=== PATIENT | female | born 1965 | race Hispanic/Latino ===

== ENCOUNTER 2017-06-20 16:48 | Emergency (ER) | payer MEDICAID ==
[2017-06-20 16:55] VITALS: BMI 28.1
[2017-06-20 16:58] VITALS: TEMP 99
[2017-06-20 17:45] LABS: BASO # 0.04 K/mm3 (0.0-2.0); BASO % 0.3 % (0.0-3.0); EOS # 0.4 (0.0-0.7); EOS % 2.8 % (1.5-5.0); GRAN # 7.42 (1.4-6.5); GRAN % 59.2 % (50.0-68.0); HEMOGLOBIN 12.4 g/dL (12.0-16.0); LYMPH # 3.8 (1.2-3.4); LYMPH % 30.6 % (22.0-35.0); MEAN CELL VOLUME 90.4 fl (80.0-105.0); MEAN CORPUSCULAR HEMOGLOBIN 31.2 pg (25.0-35.0); MEAN CORPUSCULAR HGB CONC 34.5 g/dl (31.0-37.0); MEAN PLATELET VOLUME 11.3 fl (7.0-11.0); MONO # 0.9 (0.1-0.6); MONO % 7.1 % (1.0-6.0); PLATELET COUNT 264 10^3/uL (120.0-450.0); RBC 3.97 10^6/uL (3.5-6.1); RED CELL DISTRIBUTION WIDTH 12.6 % (11.5-14.5); WHITE BLOOD COUNT 12.5 10^3/ul (4.5-11.0)
[2017-06-20 17:46] LABS: ALB/GLOB RATIO 1.4 (1.1-1.8); ALBUMIN 4.3 g/dL (3.0-4.8); ALT/SGPT 28 U/L (7-56); AST/SGOT 29 U/L (15-39); BLOOD UREA NITROGEN 16 mg/dL (7-21); CALCIUM 9.5 mg/dL (8.4-10.5); GFR AFRICAN-AMERICAN > 60; GFR NON-AFRICAN AMERICAN > 60
--- NOTE | 2017-06-20 17:49 | ED PDOC ---
Arrival/HPI - General Chief Complaint: Female Genitourinary Time Seen by Provider: 06/20/17 17:03 Historian: Patient - History of Present Illness Narrative History of Present Illness (Text): 06/20/17 17:45 A 51 year old female presents to the emergency department complaining of vaginal bleeding for 5 weeks. Patient denies any pain or discomfort. Patient denies any fever, chills, nausea, vomiting, abdominal pain, chest pain, shortness of breath, dyspnea on exertion or any other complaints. Time/Duration: Other (5 weeks) Symptom Course: Unchanged Quality: Other Context: Home Past Medical History - Provider Review Nursing Documentation Reviewed: Yes - Infectious Disease Hx of Infectious Diseases: None - Tetanus Immunization Tetanus Immunization: Unknown - Cardiac Hx Cardiac Disorders: No Hx Pacemaker: No - Pulmonary Hx Respiratory Disorders: Yes Hx Bronchitis: Yes - Neurological Hx Neurological Disorder: Yes Hx Seizures: Yes Hx Transient Ischemic Attacks (TIA): Yes - HEENT Hx HEENT Disorder: Yes (glasses) - Renal Hx Renal Disorder: Yes Hx Kidney Stones: Yes (LITHOTRYPSY AND PASSED STONES) - Endocrine/Metabolic Hx Endocrine Disorders: Yes Hx Diabetes Mellitus Type 2: Yes Hx Hyperthyroidism: Yes Hx Hypothyroidism: Yes - Hematological/Oncological Hx Blood Disorders: Yes Hx Anemia: Yes Hx Blood Transfusions: No Hx Blood Transfusion Reaction: No - Integumentary Hx Dermatological Disorder: No - Musculoskeletal/Rheumatological Hx Musculoskeletal Disorders: Yes Hx Arthritis: Yes (Arthritis in the spine) - Gastrointestinal Hx Gastrointestinal Disorders: Yes (ULCER,GASTRITIS,CONSTIPATION,CHOLECYSTECTOMY ,APPENDECTOMY) Other/Comment: FATTY LIVER,GAASTROENTERITIS, - Genitourinary/Gynecological Hx Genitourinary Disorders: Yes Hx Urinary Tract Infection: Yes - Psychiatric Hx Anxiety: Yes Hx Bipolar Disorder: Yes Hx Depression: Yes Hx Schizophrenia: Yes Hx Substance Use: No - Past Surgical History Past Surgical History: Non-Contributing - Surgical History Hx Appendectomy: Yes Hx Cholecystectomy: Yes Hx Hysterectomy: Yes Hx Tonsillectomy: Yes - Anesthesia Hx Anesthesia: Yes Hx Anesthesia Reactions: No - Suicidal Assessment Feels Threatened In Home Enviroment: No Family/Social History - Physician Review Nursing Documentation Reviewed: Yes Family/Social History: No Known Family HX Smoking Status: Light Smoker < 10 Cigarettes Daily Hx Alcohol Use: No Hx Substance Use: No Hx Substance Use Treatment: No Allergies/Home Meds Allergies/Adverse Reactions: Allergies gabapentin Allergy (Verified 06/20/17 16:55) ANAPHYLAXIS ketorolac tromethamine [From Toradol] Allergy (Verified 06/20/17 16:55) ANAPHYLAXIS Home Medications: Home Meds Medication Instructions Recorded Confirmed Alprazolam [Xanax] 2 mg PO 5XD 05/08/15 06/20/17 Physical Exam - Physical Exam Narrative Physical Exam (Text): - Review of Systems Constitutional: Normal. absent: Fatigue, Weight Change, Fevers Eyes: Normal ENT: Normal Respiratory: Normal absent: SOB, Cough, Sputum, SINGH Cardiovascular: Normal absent: Chest pain, Palpitations, Syncope Gastrointestinal: Normal absent: Abdominal pain, Diarrhea, Nausea, Vomiting Genitourinary: (+) Vaginal bleeding absent: Dysuria, Frequency Musculoskeletal: Normal. absent: Arthralgias, Back Pain, Neck Pain Skin: Normal Neurological: Normal absent: Focal Weakness Endocrine: Normal Hemo/Lymphatic: Normal Psychiatric: Normal - Physical exam Patient appears age appropriate, speaking full sentences without difficulty. - Systems Exam Head: Present: Atraumatic, Normocephalic Pupils: Present: PERRL Extraocular Muscles: Present: EOMI Conjunctiva: Present: Normal Mouth: Present: Moist Mucous Membranes Neck: Present: Normal Range of Motion. No: MIDLINE TENDERNESS, Paraspinal Tenderness Respiratory/Chest: Present: Clear to Auscultation, Good Air Exchange. No: Respiratory Distress, Accessory Muscle Use, Tachypnic Cardiovascular: Present: Regular Rate and Rhythm, Normal S1, S2, Peripheral Pulses Present. No: Murmurs Abdomen: Present: Normal Bowel Sounds, No: Tenderness, Peritoneal Signs, Rebound, Guarding, Distention Back: Present: Normal Inspection. No: Midline Tenderness, Paraspinal Tenderness Upper Extremity: Present: Normal Inspection. No: Cyanosis, Edema Lower Extremity: Present: Normal Inspection. No: Edema Neurological: Present: GCS=15, Speech Normal, cranial nerves II through XII fully intact with no cerebellar abnormality, neuro-sensory fully intact. No focal neurological deficits. Skin: Present: Warm, Dry, Normal Color. No: Rashes Lymphatic: Present: OX3, NI, NC Psychiatric: Present: Alert, Oriented x 3, Normal Insight, Normal Concentration Vital Signs Reviewed: Yes Vital Signs Temp Pulse Resp BP Pulse Ox 06/20/17 16:58 99.0 F 103 H 19 134/88 94 L Temperature: Afebrile Blood Pressure: Normal Pulse: Tachycardic Respiratory Rate: Normal Appearance: Positive for: Well-Appearing, Non-Toxic, Comfortable Pain Distress: None Mental Status: Positive for: Alert and Oriented X 3 Medical Decision Making ED Course and Treatment: 06/20/17 17:45 Impression: A 51 year old female with vaginal bleeding. Physical exam unremarkable. Patient was recently [place] [facility] [place] and states she had a CT done which showed no renal stones. Plan: -- Labs -- Reassess and disposition Progress Notes: Patient advised that it is important to follow up with ob-cement contractor as outpatient for further workup, since her symptoms may be related to cancer. As per patient request Dr. Nuno was paged. Awaiting callback. 06/20/17 17:[address] Nuno, patients urologist, who agrees with plan to discharge patient home if her hemoglobin levels are stable. 06/20/17 18:36 Hemoglobin 12.4. Patient is hemodynamically stable and in no respiratory distress. Patient states that she has an appointment with Dr. Nuno tomorrow at 7 PM. Patient states that she feels comfortable being discharged home with outpatient follow-up. Patient left without any discharge instructions. - Lab Interpretations Lab Results: 06/20/17 17:15 06/20/17 17:15 Lab Results 06/20/17 17:15: Sodium 143, Potassium 3.8, Chloride 104, Carbon Dioxide 29, Anion Gap 14, BUN 16, Creatinine 0.6, Est GFR ( Amer) > 60, Est GFR (Non- Af Amer) > 60, Random Glucose 113 H, Calcium 9.5, Total Bilirubin 0.9, AST 29, ALT 28, Alkaline Phosphatase 106, Total Protein 7.3, Albumin 4.3, Globulin 3.0, Albumin/Globulin Ratio 1.4 06/20/17 17:15: WBC 12.5 H, RBC 3.97, Hgb 12.4, Hct 35.9 L, MCV 90.4, MCH 31.2, MCHC 34.5, RDW 12.6, Plt Count 264, MPV 11.3 H, Gran % 59.2, Lymph % (Auto) 30.6 , [place] % (Auto) 7.1 H, Eos % (Auto) 2.8, Baso % (Auto) 0.3, Gran # 7.42 H, Lymph # 3.8 H, [place] # 0.9 H, Eos # 0.4, Baso # 0.04 I have reviewed the lab results: Yes - Scribe Statement The provider has reviewed the documentation as recorded by the Scribe Lisa Bains Provider Scribe Attestation: All medical record entries made by the Scribe were at my direction and personally dictated by me. I have reviewed the chart and agree that the record accurately reflects my personal performance of the history, physical exam, medical decision making, and the department course for this patient. I have also personally directed, reviewed, and agree with the discharge instructions and disposition. Disposition/Present on Arrival - Present on Arrival Any Indicators Present on Arrival: No History of DVT/PE: No History of Uncontrolled Diabetes: Yes Urinary Catheter: No History of Decub. Ulcer: No History Surgical Site Infection Following: None - Disposition Have Diagnosis and Disposition been Completed?: Yes Diagnosis: Vaginal bleeding Disposition: HOME/ ROUTINE Disposition Time: 18:50 Patient Plan: Discharge Condition: GOOD Referrals: Vale Gallagher MD [Primary Care Provider] - Follow up with primary Forms: [employer] ([place])
[2017-06-20 22:20] VITALS: BP 134/82; PULSE 90; RESP 16; O2SAT 97
== END 2017-06-20 18:48 | disposition home or self-care (01) ==
LOC: ED 16:48
DX: N93.9 Abnormal uterine and vaginal bleeding, unspecified (principal)

== ENCOUNTER 2017-09-06 00:03 | Emergency (ER) | payer MEDICAID ==
[2017-09-06 00:03] VITALS: BMI 28.1
[2017-09-06 00:28] VITALS: PULSE 90; RESP 18; TEMP 98.2; O2SAT 98
--- NOTE | 2017-09-06 00:31 | ED PDOC ---
Arrival/HPI - General Chief Complaint: Medical Clearance Time Seen by Provider: 09/06/17 00:05 Historian: Patient, Police - History of Present Illness Narrative History of Present Illness (Text): 09/06/17 00:31 Elisabeth Wiseman is a 51 year old female, whose past medical history includes COPD , diabetes, depression, and anxiety, who presents to the Emergency department brought in by [place] after she was found sitting outside in a park tonight. According to police patient's had stated patient left home and wanted to jump [place] the [employer] [place]. In emergency department, states patient did not express suicidal ideation, reports he was talking about the patient's father who attempted to jump off the [employer] [place] in the past. Patient states she feels fine, denies any suicidal ideation/homicidal ideation. Patient requesting to go home. Patient denies any fever, chills, chest pain, shortness of breath, nausea, vomiting, diarrhea, urinary symptoms, back pain, neck pain, headache, dizziness, or any other complaints. Time/Duration: Other (tonight) Symptom Onset: Gradual Symptom Course: Unchanged Activities at Onset: Light Context: Street Past Medical History - Provider Review Nursing Documentation Reviewed: Yes - Infectious Disease Hx of Infectious Diseases: None - Tetanus Immunization Tetanus Immunization: Unknown - Cardiac Hx Cardiac Disorders: No Hx Pacemaker: No - Pulmonary Hx Respiratory Disorders: Yes Hx Bronchitis: Yes - Neurological Hx Neurological Disorder: Yes Hx Seizures: Yes Hx Transient Ischemic Attacks (TIA): Yes - HEENT Hx HEENT Disorder: Yes (glasses) - Renal Hx Renal Disorder: Yes Hx Kidney Stones: Yes (LITHOTRYPSY AND PASSED STONES) - Endocrine/Metabolic Hx Endocrine Disorders: No - Hematological/Oncological Hx Blood Disorders: No Hx Blood Transfusions: No Hx Blood Transfusion Reaction: No - Integumentary Hx Dermatological Disorder: No - Musculoskeletal/Rheumatological Hx Musculoskeletal Disorders: Yes Hx Arthritis: Yes (Arthritis in the spine) - Gastrointestinal Hx Gastrointestinal Disorders: Yes (ULCER,GASTRITIS,CONSTIPATION,CHOLECYSTECTOMY ,APPENDECTOMY) Other/Comment: FATTY LIVER,GAASTROENTERITIS, - Genitourinary/Gynecological Hx Genitourinary Disorders: No - Psychiatric Hx Anxiety: Yes Hx Depression: Yes Hx Substance Use: No - Past Surgical History Past Surgical History: Non-Contributing - Surgical History Hx Appendectomy: Yes Hx Cholecystectomy: Yes Hx Hysterectomy: Yes Hx Tonsillectomy: Yes - Anesthesia Hx Anesthesia: Yes Hx Anesthesia Reactions: No - Suicidal Assessment Feels Threatened In Home Enviroment: No Family/Social History - Physician Review Nursing Documentation Reviewed: Yes Family/Social History: Unknown Family HX Smoking Status: Light Smoker < 10 Cigarettes Daily Hx Alcohol Use: No Hx Substance Use: No Hx Substance Use Treatment: No Allergies/Home Meds Allergies/Adverse Reactions: Allergies gabapentin Allergy (Verified 09/06/17 00:31) ANAPHYLAXIS ketorolac tromethamine [From Toradol] Allergy (Verified 09/06/17 00:31) ANAPHYLAXIS Review of Systems - Physician Review All systems were reviewed & negative as marked: Yes - Review of Systems Constitutional: Normal. absent: Fevers Eyes: Normal ENT: Normal Respiratory: Normal. absent: SOB, Cough Cardiovascular: Normal. absent: Chest Pain Gastrointestinal: Normal. absent: Abdominal Pain, Diarrhea, Nausea, Vomiting Genitourinary Female: Normal. absent: Dysuria, Frequency, Hematuria, Urine Output Changes Musculoskeletal: Normal. absent: Back Pain, Neck Pain Skin: Normal. absent: Rash Neurological: Normal. absent: Headache, Dizziness Endocrine: Normal Hemo/Lymphatic: Normal Psychiatric: Normal. absent: Suicidal Ideation Physical Exam Vital Signs Reviewed: Yes Vital Signs Temp Pulse Resp BP Pulse Ox 09/06/17 00:30 138/84 09/06/17 00:23 98.2 F 90 18 98 Temperature: Afebrile Blood Pressure: Normal Pulse: Regular Respiratory Rate: Normal Appearance: Positive for: Well-Appearing, Non-Toxic, Comfortable Pain Distress: None Mental Status: Positive for: Alert and Oriented X 3 - Systems Exam Head: Present: Atraumatic, Normocephalic Pupils: Present: PERRL Extroacular Muscles: Present: EOMI Conjunctiva: Present: Normal Mouth: Present: Moist Mucous Membranes Neck: Present: Normal Range of Motion Respiratory/Chest: Present: Clear to Auscultation, Good Air Exchange. No: Respiratory Distress, Accessory Muscle Use Cardiovascular: Present: Regular Rate and Rhythm, Normal S1, S2. No: Murmurs Abdomen: Present: Normal Bowel Sounds. No: Tenderness, Distention, Peritoneal Signs Back: Present: Normal Inspection Upper Extremity: Present: Normal Inspection. No: Cyanosis, Edema Lower Extremity: Present: Normal Inspection. No: Edema Neurological: Present: GCS=15, CN II-XII Intact, Speech Normal Skin: Present: Warm, Dry, Normal Color. No: Rashes Psychiatric: Present: Alert, Oriented x 3, Normal Insight, Normal Concentration Medical Decision Making ED Course and Treatment: 09/06/17 00:31 Impression: 51 year old female brought in [facility] after she was found sitting outside in the park for possible SI. Plan: -- Reassess and disposition Prior Visits: Notes and results from previous visits were reviewed. Progress Notes: at bedside. denies reporting patient was expressing suicidal ideation. Patient states she feels fine, denies any SI/HI/other complaints. states he will take the pt home. Pt is in no acute distress. Pt stable for discharge. - Scribe Statement The provider has reviewed the documentation as recorded by the Scribe Anahi Cooper All medical record entries made by the Scribe were at my direction and personally dictated by me. I have reviewed the chart and agree that the record accurately reflects my personal performance of the history, physical exam, medical decision making, and the department course for this patient. I have also personally directed, reviewed, and agree with the discharge instructions and disposition. Disposition/Present on Arrival - Present on Arrival Any Indicators Present on Arrival: No History of DVT/PE: No History of Uncontrolled Diabetes: No Urinary Catheter: No History of Decub. Ulcer: No History Surgical Site Infection Following: None - Disposition Have Diagnosis and Disposition been Completed?: Yes Diagnosis: Routine check-up Disposition: HOME/ ROUTINE Disposition Time: 01:00 Condition: GOOD Discharge Instructions (ExitCare): Normal Exam (ED) Forms: [employer] ([employer])
[2017-09-06 00:45] VITALS: BP 138/84
== END 2017-09-06 00:46 | disposition home or self-care (01) ==
LOC: ED 00:03
DX: Z00.00 Encounter for general adult medical examination without abnormal findings (principal); E11.9 Type 2 diabetes mellitus without complications; F17.210 Nicotine dependence, cigarettes, uncomplicated; J44.9 Chronic obstructive pulmonary disease, unspecified

== ENCOUNTER 2017-09-07 12:40 | Emergency (ER) | payer MEDICAID ==
[2017-09-07 12:41] VITALS: BMI 28.1
[2017-09-07 13:00] VITALS: RESP 17; TEMP 98.1
--- NOTE | 2017-09-07 13:51 | ED PDOC ---
Arrival/HPI - General Historian: Spouse - History of Present Illness Time/Duration: 24 hours Symptom Onset: Sudden Symptom Course: Unchanged Quality: Unable to Describe (non verbal) Context: Home <Priti Luis - Last Filed: 09/07/17 17:03> <EsteeShonluiz - Last Filed: 09/07/17 22:07> - General Chief Complaint: Altered Mental Status Time Seen by Provider: 09/07/17 12:44 - History of Present Illness Narrative History of Present Illness (Text): 09/07/17 13:47 All history obtained from spouse at bedside, pt currently non verbal- able to indicate yes/no with head nods. 51F w/PMH sig for COPD, DM, depression/anxiety, chronic low back pain 2/2 disc herniation, hx gastritic ulcer, neuropathy, family reports "TIA" evaluated for pain after fall. Pt's reports that patient was in a room at home when he heard a loud noise. A family member entered the room, patient was found "laying in the position on the floor between the bed and the wall with the top part of a bureau partially on the bed and on the wall above her". Incident occurred at approximately 3pm, on day prior to ED visit. Patient was previously verbal, ambulatory, after incident reports that pt was "out, we placed her on the bed and she didn't wake up until 4 hours later". After incident pt became non verbal, non ambulatory, but capable of eating dinner and breakfast this AM. This AM pt said 1 sentence to spouse. Continues to be non verbal at this time. Pt indicated that she was in pain from her left hip at which time decided to call EMS. PMH: COPD, DM, depression/anxiety, chronic low back pain 2/2 disc herniation, hx gastritic ulcer, neuropathy, family reports "TIA" PSH: appendectomy, cholecystectomy, Tonsillectomy, hysterectomy All: NSAIDs SH: Smokes 4-5 cigarettes x 10 yrs, Denies ETOH or illicit drug use PMD: Mark Nj (Priti Luis) Past Medical History - Provider Review Nursing Documentation Reviewed: Yes - Infectious Disease Hx of Infectious Diseases: None - Tetanus Immunization Tetanus Immunization: Unknown - Cardiac Hx Cardiac Disorders: No - Pulmonary Hx Respiratory Disorders: Yes Hx Bronchitis: Yes - Neurological Hx Neurological Disorder: Yes HX Cerebrovascular Accident: Yes Hx Seizures: Yes Hx Transient Ischemic Attacks (TIA): Yes Other/Comment: Neuropathy - HEENT Hx HEENT Disorder: Yes (glasses) - Renal Hx Renal Disorder: Yes Hx Kidney Stones: Yes (LITHOTRYPSY AND PASSED STONES) - Endocrine/Metabolic Hx Diabetes Mellitus Type 2: Yes - Hematological/Oncological Hx Blood Disorders: No - Integumentary Hx Dermatological Disorder: No - Musculoskeletal/Rheumatological Hx Musculoskeletal Disorders: Yes Hx Arthritis: Yes (Arthritis in the spine) - Gastrointestinal Hx Gastrointestinal Disorders: Yes (ULCER,GASTRITIS,CONSTIPATION,CHOLECYSTECTOMY ,APPENDECTOMY) Other/Comment: FATTY LIVER,GAASTROENTERITIS, - Genitourinary/Gynecological Hx Genitourinary Disorders: No - Psychiatric Hx Anxiety: Yes Hx Depression: Yes Hx Substance Use: No - Past Surgical History Past Surgical History: Non-Contributing - Surgical History Hx Appendectomy: Yes Hx Cholecystectomy: Yes Hx Hysterectomy: Yes Hx Orthopedic Surgery: Yes (Right ankle screw placed) Hx Tonsillectomy: Yes - Anesthesia Hx Anesthesia: Yes Hx Anesthesia Reactions: No - Suicidal Assessment Feels Threatened In Home Enviroment: No <Priti Luis - Last Filed: 09/07/17 17:03> Family/Social History - Physician Review Nursing Documentation Reviewed: Yes Family/Social History: No Known Family HX Smoking Status: Light Smoker < 10 Cigarettes Daily Hx Alcohol Use: No Hx Substance Use: No Hx Substance Use Treatment: No <Priti Luis - Last Filed: 09/07/17 17:03> Allergies/Home Meds <Priti Luis - Last Filed: 09/07/17 17:03> <Ann Fontanez - Last Filed: 09/07/17 22:07> Allergies/Adverse Reactions: Allergies gabapentin Allergy (Verified 09/07/17 12:59) ANAPHYLAXIS ketorolac tromethamine [From Toradol] Allergy (Verified 09/07/17 12:59) ANAPHYLAXIS NSAIDS (Non-Steroidal Anti-Inflamma Allergy (Verified 09/07/17 12:59) ANAPHYLAXIS Home Medications: Home Meds Medication Instructions Recorded Confirmed Unobtainable 09/07/17 09/07/17 Review of Systems - Review of Systems Systems not reviewed;Unavailable: Uncooperative (non verbal) Musculoskeletal: Other (Left hip pain) <Priti Luis - Last Filed: 09/07/17 17:03> - Review of Systems Respiratory: absent: SOB Cardiovascular: absent: Chest Pain Gastrointestinal: absent: Abdominal Pain Musculoskeletal: Back Pain. absent: Neck Pain Neurological: absent: Headache <EsteeAnn - Last Filed: 09/07/17 22:07> Physical Exam Vital Signs Reviewed: Yes Temperature: Afebrile Blood Pressure: Normal Pulse: Regular Respiratory Rate: Normal Appearance: Positive for: Non-Toxic, Comfortable Pain Distress: None Mental Status: Positive for: other (non verbal, follows simple commands) Finger Stick Blood Glucose: 84 - Systems Exam Head: Present: Atraumatic, Normocephalic Pupils: Present: PERRL Extroacular Muscles: Present: EOMI Conjunctiva: Present: Normal Ears: Present: Normal Mouth: Present: Moist Mucous Membranes. No: Normal Teeth (abnormal dentition) Nose (External): Present: Atraumatic Neck: Present: Normal Range of Motion Respiratory/Chest: Present: Clear to Auscultation, Good Air Exchange. No: Respiratory Distress, Accessory Muscle Use, Tender to Palpation Cardiovascular: Present: Regular Rate and Rhythm, Normal S1, S2. No: Murmurs Abdomen: Present: Normal Bowel Sounds. No: Tenderness, Distention, Peritoneal Signs, Rebound, Guarding, Scars Back: Present: Paraspinal Tenderness (low back- mild), Pain with Leg Raise. No : Normal Inspection Upper Extremity: Present: Normal Inspection. No: Cyanosis, Edema, Normal ROM ( refusing to move left arm) Lower Extremity: Present: Normal Inspection, Tenderness (over left hip), Neurovascularly Intact. No: Normal ROM (refusing to move left leg), Erythema Neurological: Present: Norm Deep Tendon Reflexes (on legs bilat). No: CN II- XII Intact (refuses to open mouth), Speech Normal (refuses to speak), Motor Func Grossly Intact (refusing to move left arm and leg) Skin: Present: Warm, Dry, Normal Color. No: Rashes, Erythematous, Laceration, Abrasion Psychiatric: Present: Alert. No: Oriented x 3 (unable to assess), Normal Insight (unable to asses, non verbal), Normal Concentration (unable to asses, non verbal) <Priti Luis - Last Filed: 09/07/17 17:03> Vital Signs Temp Pulse Resp BP Pulse Ox 09/07/17 14:49 98.1 F 77 17 121/68 99 09/07/17 12:59 98.1 F 78 17 123/74 100 Medical Decision Making <Priti Luis - Last Filed: 09/07/17 17:03> <Ann Fontanez - Last Filed: 09/07/17 22:07> ED Course and Treatment: 09/07/17 13:54 Pt seen/evaluated, case DW ED attending. Will order lab work and imaging to assess for abnormalities. Pt seen signing her name on documentation at 13:20pm. (Priti Luis) 09/07/17 14:23 Patient seen and examined by me with biofuels plant manager Jaquelin CISNEROS, charge nurse at 13:15. Patient is present with , Syed, who supplements and provides history. I introduced myself to patient and family. When I entered room, with patient's and family's permission, I identified myself as the attending physician and stated that I wished to obtain history and examine the patient. The patient reportedly had requested that she did not want to have an EKG or get changed into a gown for examination. Thus, when I came into room, I discussed with patient and that given her complaints of injury and pain that I would like to perform physical exam to examine her neurologic status as well as pain and current symptoms. Patient nods her head in answer to my questions. She answers questions appropriately to questions with nods. She is focused on my voice. She is able to sign papers provided by registration with no difficulty. She is not speaking and reportedly has difficulty moving her left side. is present throughout my initial history and physical. When asked if she would allow me to change her into a gown she shakes her head no, but she nods in agreement when I asked if I could examine her back to examine her back pain. She points on her where she is experiencing pain. states that "at 3 pm yesterday I found her on the floor with a dresser on top of her". He states "she was out of it for four hours" and "not responding ". States he did not call ambulance at this time. He states this morning she was having pain to her left side on her back and hip. He states that she was having difficultly moving her left sided and not talking "since yesterday". This history and exam were witnessed by Jaquelin charge nurse RN who is present throughout my initial exam. Patient is alert, answers questions appropriately by nodding or shaking her head and gesturing to her . I also confirmed with patient's if he felt that she was communicating appropriately and understanding he states "yes she is". When I asked patient if she understands my questions she nods her head and answers questions appropriately. Patient's states that "she told me before she did not want to come to the hospital here that's why I didn't bring her yesterday. Patient's initially states that she has not been to this hospital for several months. I reviewed past visits and charts which suggest patient was evaluated in ED on 09/06/17. I discussed this with who states "oh yeah, you have to excuse me I have a memory problem sometimes" and states "I think she was here in the ER yesterday or the day before". Patient states that left the ER ambulating, and states that current incident happened the following day after being recently seen in the ER. Patient denies any headaches or chest pain or shortness of breath or abdominal pain. Reports pain to her left hip and upper back. On exam, no edema or crepitus or deformities noted. She does not lift up her left arm or left leg when prompted, although patient noted to push up off of her LEFT arm when sitting up. Reflexes intact. She will not speak. She denies overdose of any drugs or medications. She denies suicidal or homicidal ideation. I clearly discussed treatment plan including CT head, xrays, labs, EKG. I discussed this with her and in laymen's terms she states she is agreeable to have this testing done at this time. 09/07/17 15:31 Patient and , Syed, communicate to me that they wish her name to be changed to "Oxana" for privacy purposes. Initially they state that they do not wish for any further testing until this is addressed. I discussed this request with administrators and at 15:25 with nurse Lisa RN witness I updated the patient and that this request is being evaluated by administration. Patient and have given permission to address their concerns with social welfare administrator and charge nurse/nursing tank shop supervisor. Patient communicated via texting on phone and nodding her head. I asked directed if she is willing to have CT scan and xrays obtained at this time, she expressed that she is agreeable, concurs, Lisa RN, witnessed. On re-exam, she remains awake, alert, complains of back pain by pointing to her back, texts that she took Advil and xanax earlier today and she still has pain.. She continues to not communicate verbally, although she is moving her right upper and lower extremity without difficulty, and moving her left side as well. 09/07/17 16:25 Re-exam, with biofuels plant manager present. Patient complains of pain in her back requesting pain medication. She remains nonverbal but communicates with gestures , texting, nods. Patient unwilling currently to have xrays of her back and hip completed, requesting that her name to be changed to Oxana before she has these ordered xrays. I again communicated with risk management and administration regarding patient's and patients request. I again communicated with patient and family my desire to further treat and evaluate patient's current symptoms and again reviewed need for serial exams and imaging studies. I reviewed patient's allergies with patient and , she communicates that Morphine "makes her throat close up" and reports allergeis to ketorolac. Marketing Project Manager presented to bedside by patient's request to address her request to have her name "changed to Oxana". I have discussed risks and side effects of narcotic pain medication, and have offered alternative dosage or class of pain medication to patient as I am concerned that she is not speaking and there is risk of sedation or alteration of her mental status. At this point patient shook her head vehemently and communicated with that she wanted to leave. She is alert, understands stated risks of not following recommended treatment plan including but not limited to continued treatment, serial exams, serial neurologic exams, and have discussed with her and her risks of signing out against medical advice. She is able to communicate understanding of stated risks with present. 09/07/17 16:38 As patient's AMA paperwork was being prepared, patient ambulated to the physician area. She was informed her paperwork was being prepared and she and her were requested to leave the physician area to her stretcher so that paperwork could be prepared. Patient became physically aggressive with staff. She walked out of the Emergency Room with her and ripped up provided AMA form. All interactions with patient during Emergency Department evaluation were performed with witness and biofuels plant manager present. 09/07/17 17:01 1 (Ann Fontanez) - Lab Interpretations Lab Results: 09/07/17 14:00 09/07/17 14:00 Lab Results 09/07/17 14:00: Salicylates < 1 L, Acetaminophen < 10.0 L 09/07/17 14:00: Beta HCG, Quant 2.57, Alcohol, Quantitative < 10 09/07/17 14:00: Sodium 144, Potassium 4.1, Chloride 108 H, Carbon Dioxide 27, Anion Gap 13, BUN 15, Creatinine 0.6 L, Est GFR ( Amer) > 60, Est GFR ( Non-Af Amer) > 60, Random Glucose 92, Calcium 9.7, Total Bilirubin 0.8, AST 23, ALT 31, Alkaline Phosphatase 79, Lactate Dehydrogenase 408, Total Creatine Kinase < 20 L, Troponin I < 0.01, Total Protein 6.7, Albumin 4.0, Globulin 2.7, Albumin/Globulin Ratio 1.5 09/07/17 14:00: WBC 9.6 D, RBC 4.09, Hgb 12.8, Hct 37.3, MCV 91.2, MCH 31.3, MCHC 34.3, RDW 12.5, Plt Count 216, MPV 11.3 H, Gran % 59.5, Lymph % (Auto) 31.0 , [place] % (Auto) 6.8 H, Eos % (Auto) 2.4, Baso % (Auto) 0.3, Gran # 5.73, Lymph # 3.0, [place] # 0.7 H, Eos # 0.2, Baso # 0.03 09/07/17 12:58: POC Glucose (mg/dL) 84 - RAD Interpretation Radiology Orders: 09/07/17 13:21 HEAD W/O CONTRAST [CT] Stat Disposition/Present on Arrival - Present on Arrival History of DVT/PE: No History of Uncontrolled Diabetes: No Urinary Catheter: No History of Decub. Ulcer: No History Surgical Site Infection Following: None <Priti Luis - Last Filed: 09/07/17 17:03> - Present on Arrival Any Indicators Present on Arrival: No - Disposition Have Diagnosis and Disposition been Completed?: Yes Disposition Time: 16:30 Patient Plan: Discharge <Ann Fontanez - Last Filed: 09/07/17 22:07> - Disposition Diagnosis: Back pain, Difficulty speaking Disposition: AGAINST MEDICAL ADVICE Condition: STABLE Referrals: Mark Nj MD [Primary Care Provider] - Follow up with primary Forms: [employer] ([place])
[2017-09-07 14:16] LABS: BASO # 0.03 K/mm3 (0.0-2.0); BASO % 0.3 % (0.0-3.0); EOS # 0.2 (0.0-0.7); EOS % 2.4 % (1.5-5.0); GRAN # 5.73 (1.4-6.5); GRAN % 59.5 % (50.0-68.0); HEMATOCRIT 37.3 % (36.0-48.0); MEAN CELL VOLUME 91.2 fl (80.0-105.0); MEAN CORPUSCULAR HEMOGLOBIN 31.3 pg (25.0-35.0); MEAN CORPUSCULAR HGB CONC 34.3 g/dl (31.0-37.0); MEAN PLATELET VOLUME 11.3 fl (7.0-11.0); MONO # 0.7 (0.1-0.6); MONO % 6.8 % (1.0-6.0); RED CELL DISTRIBUTION WIDTH 12.5 % (11.5-14.5); WHITE BLOOD COUNT 9.6 10^3/ul (4.5-11.0)
[2017-09-07 14:28] LABS: ALB/GLOB RATIO 1.5 (1.1-1.8); ALKALINE PHOSPHATASE 79 U/L (38-126); ALT/SGPT 31 U/L (7-56); AST/SGOT 23 U/L (14-36); BILIRUBIN,TOTAL 0.8 mg/dL (0.2-1.3); BLOOD UREA NITROGEN 15 mg/dL (7-21); CALCIUM 9.7 mg/dL (8.4-10.5); CARBON DIOXIDE 27 mmol/L (21-33); CHLORIDE 108 mmol/L (98-107); GFR AFRICAN-AMERICAN > 60; GLUCOSE,RANDOM 92 mg/dL (70-110); POTASSIUM 4.1 mmol/L (3.6-5.0); SODIUM 144 mmol/L (132-148); TOTAL PROTEIN 6.7 g/dL (5.8-8.3)
[2017-09-07 14:30] LABS: ALCOHOL SERUM < 10 mg/dL (0-10)
[2017-09-07 14:45] LABS: TROPONIN I < 0.01 ng/mL
[2017-09-07 14:51] VITALS: BP 121/68; PULSE 77; O2SAT 99
--- NOTE | 2017-09-07 16:17 | CT ---
PROCEDURE: CT HEAD WITHOUT CONTRAST. HISTORY: possible trauma COMPARISON: 11/30/2016 TECHNIQUE: Axial computed tomography images were obtained through the head/brain without intravenous contrast. Radiation dose: Total exam DLP = 725 mGy-cm. This CT exam was performed using one or more of the following dose reduction techniques: Automated exposure control, adjustment of the mA and/or kV according to patient size, and/or use of iterative reconstruction technique. FINDINGS: HEMORRHAGE: No intracranial hemorrhage. BRAIN: No mass effect or edema. No atrophy or chronic microvascular ischemic changes. VENTRICLES: Unremarkable. No hydrocephalus. CALVARIUM: Unremarkable. PARANASAL SINUSES: Unremarkable as visualized. No significant inflammatory changes. MASTOID AIR CELLS: Unremarkable as visualized. No inflammatory changes. OTHER FINDINGS: None. IMPRESSION: Normal CT of the Head.
--- NOTE | 2017-09-08 08:21 | CARD ---
APPROVED REPORT EKG Measurement Heart [id number] <Conclusion> Normal sinus rhythm with sinus arrhythmia Small inferior q waves Normal ECG No change
== END 2017-09-07 16:45 | disposition left against medical advice (07) ==
LOC: ED 12:40
DX: M54.9 Dorsalgia, unspecified (principal); R47.9 Unspecified speech disturbances

== ENCOUNTER 2017-12-04 20:56 | Emergency (ER) | payer MEDICAID ==
[2017-12-04 20:56] VITALS: BMI 28.1
[2017-12-04 21:32] VITALS: BP 112/72; PULSE 87; RESP 18; TEMP 98.1; O2SAT 100
[2017-12-04 21:47] LABS: BASO # 0.03 K/mm3 (0.0-2.0); BASO % 0.3 % (0.0-3.0); EOS # 0.2 (0.0-0.7); EOS % 1.8 % (1.5-5.0); GRAN # 7.62 (1.4-6.5); GRAN % 65.6 % (50.0-68.0); HEMOGLOBIN 13.9 g/dL (12.0-16.0); LYMPH % 25.8 % (22.0-35.0); MEAN CORPUSCULAR HEMOGLOBIN 31.7 pg (25.0-35.0); MEAN CORPUSCULAR HGB CONC 35.3 g/dl (31.0-37.0); MEAN PLATELET VOLUME 11.3 fl (7.0-11.0); MONO # 0.8 (0.1-0.6); MONO % 6.5 % (1.0-6.0); RBC 4.38 10^6/uL (3.5-6.1); RED CELL DISTRIBUTION WIDTH 12.3 % (11.5-14.5); WHITE BLOOD COUNT 11.6 10^3/ul (4.5-11.0)
--- NOTE | 2017-12-04 21:47 | ED PDOC ---
Arrival/HPI - General Chief Complaint: Chest Pain Time Seen by Provider: 12/04/17 21:12 Historian: Patient, Spouse - History of Present Illness Narrative History of Present Illness (Text): 12/04/17 21:46 A 52 year old female presents to the emergency department complaining of chest pain that developed sometime today. History obtained from spouse at bedside. Patient reports she feels like her "heart is falling out of chest". Patient has reported to the emergency department in the past for drug overdose. Denies any other complaints at this time. PMD: Dr. Mark Nj Symptom Onset: Sudden Symptom Course: Unchanged Activities at Onset: Rest Context: Home Past Medical History - Provider Review Nursing Documentation Reviewed: Yes - Infectious Disease Hx of Infectious Diseases: None - Tetanus Immunization Tetanus Immunization: Unknown - Cardiac Hx Cardiac Disorders: No - Pulmonary Hx Respiratory Disorders: Yes Hx Bronchitis: Yes - Neurological Hx Neurological Disorder: Yes HX Cerebrovascular Accident: Yes Hx Seizures: Yes Hx Transient Ischemic Attacks (TIA): Yes Other/Comment: Neuropathy - HEENT Hx HEENT Disorder: Yes (glasses) - Renal Hx Renal Disorder: Yes Hx Kidney Stones: Yes (LITHOTRYPSY AND PASSED STONES) - Endocrine/Metabolic Hx Diabetes Mellitus Type 2: Yes - Hematological/Oncological Hx Blood Disorders: No - Integumentary Hx Dermatological Disorder: No - Musculoskeletal/Rheumatological Hx Musculoskeletal Disorders: Yes Hx Arthritis: Yes (Arthritis in the spine) - Gastrointestinal Hx Gastrointestinal Disorders: Yes (ULCER,GASTRITIS,CONSTIPATION,CHOLECYSTECTOMY ,APPENDECTOMY) Other/Comment: FATTY LIVER,GAASTROENTERITIS, - Genitourinary/Gynecological Hx Genitourinary Disorders: No - Psychiatric Hx Anxiety: Yes Hx Depression: Yes Hx Substance Use: No - Past Surgical History Past Surgical History: Non-Contributing - Surgical History Hx Appendectomy: Yes Hx Cholecystectomy: Yes Hx Hysterectomy: Yes Hx Orthopedic Surgery: Yes (Right ankle screw placed) Hx Tonsillectomy: Yes - Anesthesia Hx Anesthesia: Yes Hx Anesthesia Reactions: No Hx Malignant Hyperthermia: No - Suicidal Assessment Feels Threatened In Home Enviroment: No Family/Social History - Physician Review Nursing Documentation Reviewed: Yes Family/Social History: No Known Family HX Smoking Status: Light Smoker < 10 Cigarettes Daily Hx Alcohol Use: No Hx Substance Use: No Hx Substance Use Treatment: No Allergies/Home Meds Allergies/Adverse Reactions: Allergies gabapentin Allergy (Verified 09/07/17 12:59) ANAPHYLAXIS ketorolac tromethamine [From Toradol] Allergy (Verified 09/07/17 12:59) ANAPHYLAXIS NSAIDS (Non-Steroidal Anti-Inflamma Allergy (Verified 09/07/17 12:59) ANAPHYLAXIS Home Medications: Home Meds Medication Instructions Recorded Confirmed Unobtainable 09/07/17 09/07/17 Review of Systems - Physician Review All systems were reviewed & negative as marked: Yes - Review of Systems Constitutional: absent: Fevers Cardiovascular: Chest Pain Physical Exam Vital Signs Reviewed: Yes Vital Signs Temp Pulse Resp BP Pulse Ox 12/04/17 20:56 98.1 F 87 18 112/72 100 Temperature: Afebrile Blood Pressure: Normal Pulse: Regular Respiratory Rate: Normal Appearance: Positive for: Comfortable, Other (appears impaired by drugs or alcohol) Pain Distress: None Mental Status: Positive for: Alert and Oriented X 3 - Systems Exam Head: Present: Atraumatic, Normocephalic Pupils: Present: PERRL Extroacular Muscles: Present: EOMI Conjunctiva: Present: Normal Mouth: Present: Moist Mucous Membranes Neck: Present: Normal Range of Motion Respiratory/Chest: Present: Clear to Auscultation, Good Air Exchange. No: Respiratory Distress, Accessory Muscle Use Cardiovascular: Present: Regular Rate and Rhythm, Normal S1, S2. No: Murmurs Abdomen: Present: Normal Bowel Sounds. No: Tenderness, Distention, Peritoneal Signs Back: Present: Normal Inspection Upper Extremity: Present: Normal Inspection. No: Cyanosis, Edema Lower Extremity: Present: Normal Inspection. No: Edema Neurological: Present: GCS=15, CN II-XII Intact, Speech Normal Skin: Present: Warm, Dry, Normal Color. No: Rashes Psychiatric: Present: Alert, Oriented x 3, Normal Insight, Normal Concentration Medical Decision Making ED Course and Treatment: 12/04/17 21:44 Impression: A 52 year old female with chest pain. Plan: -- EKG -- chest xray -- labs -- Reassess and disposition Progress Notes: EKG: Ordered, reviewed and independently interpreted the EKG. Rate: 92 BPM Rhythm: NSR Interpretation: Normal intervals, normal axis 12/04/17 22:43 I stated how I'm uncomfortable prescribing narcotics for the patient under any circumstance, given her history, and with the current narcotic epidemic in [place]. 12/04/17 23:25 Nurse told me that the patient and her discontinued her IV on their own and left saying that they are done with this hospital. - Lab Interpretations Lab Results: 12/04/17 21:40 12/04/17 21:40 Lab Results 12/04/17 21:40: Alcohol, Quantitative < 10 12/04/17 21:40: Sodium 142, Potassium 4.3, Chloride 102, Carbon Dioxide 26, Anion Gap 18, BUN 21, Creatinine 0.6 L, Est GFR ( Amer) > 60, Est GFR ( Non-Af Amer) > 60, Random Glucose 87, Calcium 10.6 H, Total Bilirubin 1.0, AST 36 D, ALT 29, Alkaline Phosphatase 86, Lactate Dehydrogenase 395, Total Creatine Kinase < 20 L, Troponin I < 0.01, NT-Pro-B Natriuret Pep 45.7, Total Protein 7.7, Albumin 4.4, Globulin 3.4, Albumin/Globulin Ratio 1.3 12/04/17 21:40: PT 13.2 H, INR 1.15 H 12/04/17 21:40: WBC 11.6 H D, RBC 4.38, Hgb 13.9, Hct 39.4, MCV 90.0, MCH 31.7, MCHC 35.3, RDW 12.3, Plt Count 254, MPV 11.3 H, Gran % 65.6, Lymph % (Auto) 25.8 , [place] % (Auto) 6.5 H, Eos % (Auto) 1.8, Baso % (Auto) 0.3, Gran # 7.62 H, Lymph # 3.0, [place] # 0.8 H, Eos # 0.2, Baso # 0.03 I have reviewed the lab results: Yes - RAD Interpretation Radiology Orders: 12/04/17 21:12 CXR (PA/LAT) [CHEST TWO VIEWS (PA/LAT)] [RAD] Stat - EKG Interpretation Interpreted by ED Physician: Yes Type: 12 lead EKG - PA / NURSERY LABORER / Resident Statement MD/DO has reviewed & agrees with the documentation as recorded. - Scribe Statement The provider has reviewed the documentation as recorded by the Scribe Sammie Reynolds All medical record entries made by the Scribe were at my direction and personally dictated by me. I have reviewed the chart and agree that the record accurately reflects my personal performance of the history, physical exam, medical decision making, and the department course for this patient. I have also personally directed, reviewed, and agree with the discharge instructions and disposition. Disposition/Present on Arrival - Present on Arrival Any Indicators Present on Arrival: No History of DVT/PE: No History of Uncontrolled Diabetes: No Urinary Catheter: No History of Decub. Ulcer: No History Surgical Site Infection Following: None - Disposition Have Diagnosis and Disposition been Completed?: Yes Diagnosis: Atypical chest pain Disposition: ELOPEMENT - ER ONLY Disposition Time: 23:27 (Patient left after being told I would not prescribe narcotics for her.) Patient Plan: Other Condition: UNKNOWN Discharge Instructions (ExitCare): Chest Pain (ED) Referrals: Vale Gallagher MD [Primary Care Provider] - Follow up with primary Forms: [employer] ([place])
[2017-12-04 21:57] LABS: INR 1.15 (0.93-1.08); PROTHROMBIN TIME 13.2 SECONDS (9.4-12.5)
[2017-12-04 22:11] LABS: ALB/GLOB RATIO 1.3 (1.1-1.8); ALBUMIN 4.4 g/dL (3.0-4.8); ALT/SGPT 29 U/L (7-56); AST/SGOT 36 U/L (14-36); BLOOD UREA NITROGEN 21 mg/dL (7-21); CALCIUM 10.6 mg/dL (8.4-10.5); GFR AFRICAN-AMERICAN > 60; GFR NON-AFRICAN AMERICAN > 60
[2017-12-04 22:22] LABS: B-TYPE NATRIURETIC PEPTIDE 45.7 pg/mL (0-450); TROPONIN I < 0.01 ng/mL
--- NOTE | 2017-12-05 13:49 | RAD ---
HISTORY: CHEST PAIN COMPARISON: 11/30/2016 TECHNIQUE: Chest PA and lateral FINDINGS: LUNGS: No active pulmonary disease. PLEURA: No significant pleural effusion identified. No pneumothorax apparent. CARDIOVASCULAR: Normal. OSSEOUS STRUCTURES: No significant abnormalities. VISUALIZED UPPER ABDOMEN: Normal. OTHER FINDINGS: None. IMPRESSION: No active disease.
--- NOTE | 2017-12-05 17:37 | CARD ---
APPROVED REPORT EKG Measurement Heart [id number] <Conclusion> Normal sinus rhythm Normal ECG
== END 2017-12-04 22:54 | disposition left against medical advice (07) ==
LOC: ED 20:56
DX: R07.89 Other chest pain (principal); E11.9 Type 2 diabetes mellitus without complications; F17.210 Nicotine dependence, cigarettes, uncomplicated

== ENCOUNTER 2018-05-23 15:24 | Emergency (ER) | payer MEDICAID ==
[2018-05-23 15:24] VITALS: BMI 28.1
== END 2018-05-23 16:10 | disposition left against medical advice (07) ==
LOC: ED 15:24
DX: Z02.89 Encounter for other administrative examinations (principal); R55 Syncope and collapse

== ENCOUNTER 2018-06-05 18:20 | Observation (INO) | payer MEDICAID ==
[2018-06-05 18:30] VITALS: BMI 16.5
--- NOTE | 2018-06-05 19:17 | ED PDOC ---
Arrival/HPI - General Chief Complaint: Headache Time Seen by Provider: 06/05/18 19:12 Historian: Patient - History of Present Illness Narrative History of Present Illness (Text): 06/05/18 19:13 52 year old female, whose past medical history includes anxiety, diabetes, and diverticulitis, who presents to the emergency department complaining of dizziness and syncope yesterday s/p head trauma. Patient notes neck pain, vomiting, diarrhea, chest pain, shortness of breath, body aches, right shoulder pain, and lower back pain. Patient denies any fever, chills, or any other complaints. Time/Duration: 24 hours Symptom Onset: Gradual Symptom Course: Unchanged Activities at Onset: Light Context: Home Past Medical History - Provider Review Nursing Documentation Reviewed: Yes - Infectious Disease Hx of Infectious Diseases: None - Tetanus Immunization Tetanus Immunization: Unknown - Cardiac Hx Cardiac Disorders: No - Pulmonary Hx Respiratory Disorders: Yes Hx Bronchitis: Yes - Neurological Hx Neurological Disorder: Yes HX Cerebrovascular Accident: Yes Hx Seizures: Yes Hx Transient Ischemic Attacks (TIA): Yes Other/Comment: Neuropathy - HEENT Hx HEENT Disorder: Yes (glasses) - Renal Hx Renal Disorder: Yes Hx Kidney Stones: Yes (LITHOTRYPSY AND PASSED STONES) - Endocrine/Metabolic Hx Diabetes Mellitus Type 2: Yes - Hematological/Oncological Hx Blood Disorders: No - Integumentary Hx Dermatological Disorder: No - Musculoskeletal/Rheumatological Hx Musculoskeletal Disorders: Yes Hx Arthritis: Yes (Arthritis in the spine) - Gastrointestinal Hx Gastrointestinal Disorders: Yes (ULCER,GASTRITIS,CONSTIPATION,CHOLECYSTECTOMY ,APPENDECTOMY) Other/Comment: FATTY LIVER,GAASTROENTERITIS, - Genitourinary/Gynecological Hx Genitourinary Disorders: No - Psychiatric Hx Anxiety: Yes Hx Depression: Yes Hx Substance Use: No - Past Surgical History Past Surgical History: Non-Contributing - Surgical History Hx Appendectomy: Yes Hx Cholecystectomy: Yes Hx Hysterectomy: Yes Hx Orthopedic Surgery: Yes (Right ankle screw placed) Hx Tonsillectomy: Yes - Anesthesia Hx Anesthesia: Yes Hx Anesthesia Reactions: No Hx Malignant Hyperthermia: No - Suicidal Assessment Feels Threatened In Home Enviroment: No Family/Social History - Physician Review Nursing Documentation Reviewed: Yes Smoking Status: Light Smoker < 10 Cigarettes Daily Hx Alcohol Use: No Hx Substance Use: No Hx Substance Use Treatment: No Allergies/Home Meds Allergies/Adverse Reactions: Allergies gabapentin Allergy (Verified 09/07/17 12:59) ANAPHYLAXIS ketorolac tromethamine [From Toradol] Allergy (Verified 09/07/17 12:59) ANAPHYLAXIS NSAIDS (Non-Steroidal Anti-Inflamma Allergy (Verified 09/07/17 12:59) ANAPHYLAXIS Home Medications: Home Meds Medication Instructions Recorded Confirmed Alprazolam [Xanax] 1 tab PO QID 06/05/18 06/05/18 MetFORMIN [glucoPHAGE] 1 tab PO TID 06/05/18 06/05/18 Review of Systems - Physician Review All systems were reviewed & negative as marked: Yes - Review of Systems Constitutional: Normal Eyes: Normal ENT: Normal Respiratory: SOB. absent: Cough Cardiovascular: Chest Pain Gastrointestinal: Diarrhea, Vomiting Genitourinary Female: Normal Musculoskeletal: Back Pain, Neck Pain, Other (body aches; rt shoulder pain) Skin: Normal. absent: Rash Neurological: Dizziness Endocrine: Normal Hemo/Lymphatic: Normal Psychiatric: Normal Physical Exam Vital Signs Reviewed: Yes Vital Signs Temp Pulse Resp BP Pulse Ox 06/05/18 18:30 98.2 F 98 H 18 123/81 98 Temperature: Afebrile Blood Pressure: Normal Pulse: Regular Respiratory Rate: Normal Appearance: Positive for: Well-Appearing, Non-Toxic, Comfortable Pain Distress: None Mental Status: Positive for: Alert and Oriented X 3 - Systems Exam Head: Present: Atraumatic, Normocephalic Pupils: Present: PERRL Extroacular Muscles: Present: EOMI Conjunctiva: Present: Normal Mouth: Present: Moist Mucous Membranes Neck: Present: Normal Range of Motion Respiratory/Chest: Present: Clear to Auscultation, Good Air Exchange. No: Respiratory Distress, Accessory Muscle Use Cardiovascular: Present: Regular Rate and Rhythm, Normal S1, S2. No: Murmurs Abdomen: No: Tenderness, Distention, Peritoneal Signs Back: Present: Other (Cervical Spine tenderness) Upper Extremity: Present: Normal Inspection. No: Cyanosis, Edema Lower Extremity: Present: Normal Inspection. No: Edema Neurological: Present: GCS=15, CN II-XII Intact, Speech Normal Skin: Present: Warm, Dry, Normal Color. No: Rashes Psychiatric: Present: Alert, Oriented x 3, Normal Insight, Normal Concentration Medical Decision Making ED Course and Treatment: 06/05/18 19:19 Impression: 52 year old male presents to the emergency department complaining of neck pain, lower back pain, cp, sob, rt shoulder pain, and body aches s/p head trauma. Plan: -- CT C-Spine -- CT Head -- EKG -- Labs -- Cardiac Enzymes -- Morphine -- Sodium Chloride -- Blood Culture -- Urine Culture -- Xray LS Spine -- Xray Pelvis -- Xray rt shoulder -- UA -- Reassess and disposition Progress Notes: C-Collar was put onto patient in Emergency department. 06/05/18 21:26 EKG reviewed, shows NSR at [address]/t wave changes 06/05/18 21:35 CT Cervical Spine reviewed, shows: IMPRESSION: No acute traumatic osseous injury. Heterogeneous thyroid gland with nodules. Nonemergent followup thyroid ultrasound recommended with tissue sampling as clinically indicated. CT Head reviewed, shows: IMPRESSION: No acute intracranial findings. X-ray rt shoulder reviewed, shows unremarkable findings. Rt shoulder shows no fracture. Xray L-Spine reviewed, shows no obvious fracture. Xray Pelvis reviewed, shows no fracture. 06/05/18 21:[address] Rivas, who is aware and agrees with plan. Patient will be admitted to Dr. Acevedo who accepts patient to her service. - Lab Interpretations Lab Results: 06/05/18 20:02 06/05/18 20:02 Lab Results 06/05/18 20:02: Sodium 144, Potassium 3.8, Chloride 105, Carbon Dioxide 29, Anion Gap 13, BUN 15, Creatinine 0.5 L, Est GFR ( Amer) > 60, Est GFR ( Non-Af Amer) > 60, Random Glucose 93, Calcium 9.3, Phosphorus 3.7, Magnesium 1.8 , Total Bilirubin 0.8, AST 31, ALT 22, Alkaline Phosphatase 80, Lactate Dehydrogenase 362, Total Creatine Kinase 22 L, Troponin I < 0.01, Total Protein 6.4, Albumin 3.8, Globulin 2.6, Albumin/Globulin Ratio 1.5 06/05/18 20:02: Urine Color Dark yellow, Urine Appearance Slight-cloudy, Urine pH 6.0, Ur Specific Amber 1.025, Urine Protein Trace H, Urine Glucose (UA) Negative, Urine Ketones 15 H, Urine Blood Negative, Urine Nitrate Negative, Urine Bilirubin Small H, Urine Urobilinogen 1.0 H, Ur Leukocyte Esterase Negative, Urine RBC Negative, Urine WBC 0 - 2, Ur Epithelial Cells None, Calcium Oxalate Crystal Small 06/05/18 20:02: PT 12.9 H, INR 1.13 H, APTT 37.1 H 06/05/18 20:02: WBC 8.0 D, RBC 3.95, Hgb 12.5, Hct 34.7 L, MCV 87.8, MCH 31.6, MCHC 36.0, RDW 11.6, Plt Count 203, MPV 11.3 H, Gran % 47.0 L, Lymph % (Auto) 43.5 H, [place] % (Auto) 6.9 H, Eos % (Auto) 2.0, Baso % (Auto) 0.6, Gran # 3.77, Lymph # (Auto) 3.5 H, [place] # (Auto) 0.6, Eos # (Auto) 0.2, Baso # (Auto) 0.05 - RAD Interpretation Radiology Orders: 06/05/18 19:15 HEAD W/O CONTRAST [CT] Stat 06/05/18 19:16 CHEST ONE VIEW [RAD] Stat 06/05/18 19:19 CERVICAL SPINE W/O CONTRAST [CT] Stat SHOULDER RIGHT [RAD] Stat 06/05/18 19:20 LS SPINE AP/LAT [RAD] Stat 06/05/18 19:22 PELVIS ONE VIEW [RAD] Stat - Medication Orders Current Medication Orders: Discontinued Medications Sodium Chloride (Sodium Chloride 0.9%) 1,000 mls @ 999 mls/hr IV .Q1H1M STA Stop: 06/05/18 20:23 Last Admin: 06/05/18 20:02 Dose: 999 mls/hr eMAR Start Stop Document 06/05/18 20:02 HI (Rec: 06/05/18 20:16 [email or web address] Intravenous Solution Start Date 06/05/18 Start Time 20:02 Morphine Sulfate (Morphine) 4 mg IVP STAT STA Stop: 06/05/18 19:24 Last Admin: 06/05/18 20:02 Dose: 4 mg MAR Pain Assessment Document 06/05/18 20:02 HI (Rec: 06/05/18 20:16 [email or web address] Pain Reassessment Is this a pain reassessment? No Sleep Is patient sleeping during reassessment? No Presence of Pain Presence of Pain Yes Location Pain Location Body Quality System Manager IVP Administration Document 06/05/18 20:02 HI (Rec: 06/05/18 20:16 [place] [id number]) Charges for Administration # of IVP Administrations 1 Re-Assess: KRISTY Pain Assessment Document 06/05/18 21:02 HI (Rec: 06/05/18 22:17 [email or web address]) Pain Reassessment Is this a pain reassessment? Yes Sleep Is patient sleeping during reassessment? No Presence of Pain Presence of Pain Yes Pain Scale Used Pain Scale Used Numeric Description Pain not relieved and LIP/MD was Yes: no interventions given notified Morphine Sulfate (Morphine) 4 mg IVP STAT STA Stop: 06/05/18 21:52 Last Admin: 06/05/18 22:16 Dose: 4 mg KRISTY Pain Assessment Document 06/05/18 22:16 HI (Rec: 06/05/18 22:16 [place] [id number]) Pain Reassessment Is this a pain reassessment? Yes Sleep Is patient sleeping during reassessment? No Presence of Pain Presence of Pain Yes Pain Scale Used Pain Scale Used Numeric IVP Administration Document 06/05/18 22:16 HI (Rec: 06/05/18 22:16 [facility]) Charges for Administration # of IVP Administrations 1 - Scribe Statement The provider has reviewed the documentation as recorded by the Scribmalik Rice All medical record entries made by the Scribe were at my direction and personally dictated by me. I have reviewed the chart and agree that the record accurately reflects my personal performance of the history, physical exam, medical decision making, and the department course for this patient. I have also personally directed, reviewed, and agree with the discharge instructions and disposition. Disposition/Present on Arrival - Present on Arrival History of DVT/PE: No History of Uncontrolled Diabetes: No Urinary Catheter: No History of Decub. Ulcer: No History Surgical Site Infection Following: None - Disposition
[2018-06-05] MEDS ORDERED: Sodium Chloride 0.9% 1,000 ML IV STA (19:23)
[2018-06-05] MEDS ORDERED: Morphine 4 mg/ml ISec IVP STA ×2 (19:23→21:51)
[2018-06-05 20:16] LABS: BASO # 0.05 K/mm3 (0.0-2.0); BASO % 0.6 % (0.0-3.0); EOS # 0.2 (0.0-0.7); GRAN # 3.77 (1.4-6.5); HEMOGLOBIN 12.5 g/dL (12.0-16.0); LYMPH # 3.5 (1.2-3.4); LYMPH % 43.5 % (22.0-35.0); MEAN CELL VOLUME 87.8 fl (80.0-105.0); MEAN CORPUSCULAR HEMOGLOBIN 31.6 pg (25.0-35.0); MEAN PLATELET VOLUME 11.3 fl (7.0-11.0); MONO # 0.6 (0.1-0.6); MONO % 6.9 % (1.0-6.0); RBC 3.95 10^6/uL (3.5-6.1); RED CELL DISTRIBUTION WIDTH 11.6 % (11.5-14.5)
[2018-06-05 20:20] LABS: URINE APPEARANCE SLIGHT-CLOUDY (CLEAR); URINE BILIRUBIN SMALL (NEGATIVE); URINE BLOOD NEGATIVE (NEGATIVE); URINE COLOR DARK YELLOW (YELLOW); URINE GLUCOSE (UA) NEGATIVE (NEGATIVE); URINE LEUKOCYTE ESTERASE NEGATIVE Leu/uL (NEGATIVE); URINE PROTEIN TRACE mg/dL (<30 mg/dL)
[2018-06-05 20:24] LABS: INR 1.13 (0.93-1.08); PARTIAL THROMBOPLASTIN TIME 37.1 Seconds (25.1-36.5); PROTHROMBIN TIME 12.9 SECONDS (9.4-12.5)
[2018-06-05 20:31] LABS: ALB/GLOB RATIO 1.5 (1.1-1.8); ALBUMIN 3.8 g/dL (3.0-4.8); ALT/SGPT 22 U/L (7-56); AST/SGOT 31 U/L (14-36); BLOOD UREA NITROGEN 15 mg/dL (7-21); CALCIUM 9.3 mg/dL (8.4-10.5); GFR AFRICAN-AMERICAN > 60; GFR NON-AFRICAN AMERICAN > 60
[2018-06-05 20:34] LABS: URINE CALCIUM OXALATE CRYSTALS SMALL /hpf; URINE RBC NEGATIVE /hpf (0-2); URINE WBC 0 - 2 /hpf (0-6)
[2018-06-05 20:42] LABS: TROPONIN I < 0.01 ng/mL
[2018-06-05 23:14] LABS: BARBITURATES, UR NEGATIVE (NEGATIVE); BENZODIAZEPINES, UR POSITIVE (NEGATIVE); OPIATES, UR NEGATIVE (NEGATIVE); PHENCYCLIDINE, UR NEGATIVE (NEGATIVE)
--- NOTE | 2018-06-05 23:23 | CP.PCM.HP ---
<MomoJosias Femi - Last Filed: 06/06/18 06:23> History of Present Illness - History of Present Illness History of Present Illness: Josias Barr PGY-1 Internal Medicine Resident, History and Physical for Dr Rivas. CC: "I fell and woke up on the concrete" HPI: Pt is a 52 yo female with a PMH of COPD, DM2, Depression/Anxiety/ Dissociative identity disorder/?Schizophrenia who presents to the [facility] ED for fall with LOC. She remembers feeling dizzy while on her way to the library to mail a letter. The next thing she remembers is waking up on the ground with a passerby helping her. She claims a 10/10 headache, BRBPR, vomiting blood and watery diarrhea. She She reports everything makes her pain worse, nothing makes it better. She denies chest pain, SOB, fever, or chills. Pt reports she tried motrin, advil, tylenol, alleve, and xanax to relieve her pain, none of which worked. She also reports vaginal itching for the past 3 days. 12 point ROS obtained and added to HPI where appropriate. PMHx: COPD, DM2, Depression/Anxiety/Dissociative identity disorder/? Schizophrenia, Hemochromatosis PSH: cholecystectomy, appendectomy, hysterectomy, right ankle surgery, "kidney stone surgery" FH: father: 36yo "heart attack", mother: unknown SH: tobacco- 60pack year, alcohol- denies, drug use- denies. Meds: Metformin 1000mg po TID, Xanax 2mg po QID Allergies: Gabapentin, Ibuprofen, Ketorolac, Lurasidone Labs: CBC: WBC 8.0, Hgb 12.5 Coag: INR 1.13 CMP: Cr 0.5, Trop negative Urine: Trace protein, Ketones 15 UDS: Benzo POSITIVE Imaging: CT Head w/o con: No acute intracranial findings. CT C spine: No acute traumatic osseous injury. Heterogeneous thyroid gland with nodules. Nonemergent followup thyroid ultrasound recommended with tissue sampling as clinically indicated. Present on Admission - Present on Admission Any Indicators Present on Admission: No Review of Systems - Review of Systems Review of Systems: 12 Point ROS obtained and added to HPI where appropriate Past Patient History - Infectious Disease Hx of Infectious Diseases: None - Tetanus Immunizations Tetanus Immunization: Unknown - Past Medical History & Family History Past Medical History?: Yes - Past Social History Smoking Status: Light Smoker < 10 Cigarettes Daily - CARDIAC Hx Cardiac Disorders: No - PULMONARY Hx Respiratory Disorders: Yes Hx Bronchitis: Yes - NEUROLOGICAL Hx Neurological Disorder: Yes HX Cerebrovascular Accident: Yes Hx Seizures: Yes Hx Transient Ischemic Attacks (TIA): Yes Other/Comment: Neuropathy - HEENT Hx HEENT Problems: Yes (glasses) - RENAL Hx Chronic Kidney Disease: Yes Hx Kidney Stones: Yes (LITHOTRYPSY AND PASSED STONES) - ENDOCRINE/METABOLIC Hx Diabetes Mellitus Type 2: Yes - HEMATOLOGICAL/ONCOLOGICAL Hx Blood Disorders: No - INTEGUMENTARY Hx Dermatological Problems: No - MUSCULOSKELETAL/RHEUMATOLOGICAL Hx Musculoskeletal Disorders: Yes Hx Arthritis: Yes (Arthritis in the spine) - GASTROINTESTINAL Hx Gastrointestinal Disorders: Yes (ULCER,GASTRITIS,CONSTIPATION,CHOLECYSTECTOMY ,APPENDECTOMY) Other/Comment: FATTY LIVER,GAASTROENTERITIS, - GENITOURINARY/GYNECOLOGICAL Hx Genitourinary Disorders: No - PSYCHIATRIC Hx Anxiety: Yes Hx Depression: Yes Hx Substance Use: No - SURGICAL HISTORY Hx Appendectomy: Yes Hx Cholecystectomy: Yes Hx Hysterectomy: Yes Hx Orthopedic Surgery: Yes (Right ankle screw placed) Hx Tonsillectomy: Yes - ANESTHESIA Hx Anesthesia: Yes Hx Anesthesia Reactions: No Hx Malignant Hyperthermia: No Meds Allergies/Adverse Reactions: Allergies Allergy/AdvReac Type Severity Reaction Status Date / Time gabapentin Allergy ANAPHYLAXIS Verified 09/07/17 12:59 ketorolac tromethamine Allergy ANAPHYLAXIS Verified 09/07/17 12:59 [From Toradol] lurasidone [From Latuda] Allergy ANAPHYLAXIS Verified 06/05/18 23:42 NSAIDS (Non-Steroidal Allergy ANAPHYLAXIS Verified 09/07/17 12:59 Anti-Inflamma Physical Exam - Constitutional Appears: No Acute Distress - Head Exam Head Exam: ATRAUMATIC, NORMAL INSPECTION, NORMOCEPHALIC - Eye Exam Eye Exam: EOMI, PERRL - ENT Exam ENT Exam: Mucous Membranes Moist - Neck Exam Neck exam: Positive for: Normal Inspection - Respiratory Exam Respiratory Exam: Clear to Auscultation Bilateral, NORMAL BREATHING PATTERN. absent: Rales, Stridor - Cardiovascular Exam Cardiovascular Exam: REGULAR RHYTHM, RRR, +S1, +S2. absent: Diastolic murmur, Irregular Rhythm, JVD, Rubs, Systolic Murmur - GI/Abdominal Exam GI & Abdominal Exam: Normal Bowel Sounds, Soft. absent: Rigid - Exam Additional comments: some vaginal redness and irritation performed by Dr. You - Extremities Exam Extremities exam: Positive for: full ROM, normal inspection. Negative for: calf tenderness, joint swelling - Back Exam Back exam: NORMAL INSPECTION - Neurological Exam Neurological exam: Alert, CN II-XII Intact, Oriented x3 - Skin Skin Exam: Normal Color, Warm Results - Vital Signs Recent Vital Signs: Last Vital Signs Temp 98.3 F 06/05/18 22:51 Pulse 74 06/05/18 22:51 Resp 18 06/05/18 22:51 BP 133/84 06/05/18 22:51 Pulse Ox 100 06/05/18 22:51 - Labs Result Diagrams: 06/05/18 20:02 06/05/18 20:02 Labs: Laboratory Results - last 24 hr 06/05/18 22:10 Urine Opiates Screen Negative Urine Methadone Screen Negative Ur Barbiturates Screen Negative Ur Phencyclidine Scrn Negative Ur Amphetamines Screen Negative U Benzodiazepines Scrn Positive H U Oth Cocaine Metabols Negative U Cannabinoids Screen Negative Assessment & Plan - Assessment and Plan (Free Text) Assessment: Pt is a 52 yo female with a PMH of COPD, DM2, Depression/Anxiety/Dissociative identity disorder/?Schizophrenia who presents to the [facility] ED for fall with LOC. She remembers feeling dizzy while on her way to the library to mail a letter. Plan: Syncopal Episode -ordered Lipid panel -Ordered TSH -Troponin negative, continue to trend -Ordered blood cultures -ordered Urine cultures -consult cardio, Dr Voss -Consult neuro, Dr Zepeda -ordered CT c spine: No acute traumatic osseous injury. Heterogeneous thyroid gland with nodules. Nonemergent followup thyroid ultrasound recommended with tissue sampling as clinically indicated. -ordered ECHO -ordered carotid and vertebral US, awaiting results -NPO -neuro checks q4 for 24 hours -PT consulted Vaginal Itching -pt started on monostat suppositories DM -ordered HA1C -start ISS, low does as protocol ACHS Anxiety -continue xanax for anxiety, PRN -consider consulting psyc DVT ppx -SCDs Pt seen, examined, assessment and plan extensively discussed with Dr Rivas. Josias Barr PGY-1 <Milagro Rivas - Last Filed: 06/06/18 06:29> Results - Vital Signs Recent Vital Signs: Last Vital Signs Temp 98.1 F 06/06/18 00:10 Pulse 95 H 06/06/18 05:41 Resp 20 06/06/18 00:10 BP 122/86 06/06/18 00:10 Pulse Ox 100 06/05/18 23:39 - Labs Result Diagrams: 06/05/18 20:02 06/05/18 20:02 Labs: Laboratory Results - last 24 hr 06/05/18 22:10 Urine Opiates Screen Negative Urine Methadone Screen Negative Ur Barbiturates Screen Negative Ur Phencyclidine Scrn Negative Ur Amphetamines Screen Negative U Benzodiazepines Scrn Positive H U Oth Cocaine Metabols Negative U Cannabinoids Screen Negative Attending/Attestation - Attestation I have personally seen and examined this patient.: Yes I have fully participated in the care of the patient.: Yes I have reviewed all pertinent clinical information: Yes Notes (Text): 06/06/18 06:27 Pt seen with the resident by the bedside. Discussed case in detail. Agree with documentation of diagnosis and treatment.
[2018-06-05] MEDS ORDERED: Morphine 2 mg/ml ISec IVP PRN (23:53)
[2018-06-06 01:05] VITALS: RESP 20
[2018-06-06] MEDS ORDERED: Oxycodone/Acetaminophen 5/325 mg Tab PO PRN (04:28)
[2018-06-06] MEDS: Pantoprazole 40 mg EC Tab PO SCH ×2 (04:42→05:08)
[2018-06-06 06:34] VITALS: BP 105/76; PULSE 85; TEMP 98.2; O2SAT 98
[2018-06-06 06:37] LABS: BASO # 0.03 K/mm3 (0.0-2.0); BASO % 0.4 % (0.0-3.0); EOS # 0.3 (0.0-0.7); EOS % 3.4 % (1.5-5.0); GRAN # 3.3 (1.4-6.5); GRAN % 42.7 % (50.0-68.0); LYMPH # 3.4 (1.2-3.4); MEAN CELL VOLUME 88.3 fl (80.0-105.0); MEAN CORPUSCULAR HEMOGLOBIN 30.6 pg (25.0-35.0); MEAN CORPUSCULAR HGB CONC 34.7 g/dl (31.0-37.0); MEAN PLATELET VOLUME 11.2 fl (7.0-11.0); MONO # 0.7 (0.1-0.6); MONO % 9.5 % (1.0-6.0); RBC 3.59 10^6/uL (3.5-6.1); RED CELL DISTRIBUTION WIDTH 11.7 % (11.5-14.5); WHITE BLOOD COUNT 7.7 10^3/ul (4.5-11.0)
[2018-06-06 07:08] LABS: LDL CHOLESTEROL 55 mg/dL (0-129); TROPONIN I < 0.01 ng/mL
[2018-06-06 07:10] LABS: ALB/GLOB RATIO 1.4 (1.1-1.8); ALBUMIN 3.1 g/dL (3.0-4.8); ALT/SGPT 16 U/L (7-56); AST/SGOT 12 U/L (14-36); BLOOD UREA NITROGEN 15 mg/dL (7-21); GFR AFRICAN-AMERICAN > 60; GFR NON-AFRICAN AMERICAN > 60; HDL CHOLESTEROL 39 mg/dL (29-60)
[2018-06-06] MEDS ORDERED: Insulin Reg-LOW-Coverage SC SCH (07:30)
--- NOTE | 2018-06-06 08:29 | CT ---
Date of service: 06/05/2018 PROCEDURE: CT HEAD WITHOUT CONTRAST. HISTORY: head trauma COMPARISON: 09/07/2017 TECHNIQUE: Axial computed tomography images were obtained through the head/brain without intravenous contrast. Radiation dose: Total exam DLP = 932.11 mGy-cm. This CT exam was performed using one or more of the following dose reduction techniques: Automated exposure control, adjustment of the mA and/or kV according to patient size, and/or use of iterative reconstruction technique. FINDINGS: HEMORRHAGE: No intracranial hemorrhage. BRAIN: No mass effect or edema. No atrophy or chronic microvascular ischemic changes. VENTRICLES: Unremarkable. No hydrocephalus. CALVARIUM: Unremarkable. PARANASAL SINUSES: Unremarkable as visualized. No significant inflammatory changes. MASTOID AIR CELLS: Unremarkable as visualized. No inflammatory changes. OTHER FINDINGS: None. IMPRESSION: No acute intracranial abnormalities. No significant findings to account for the clinical presentation. Concordant results (preliminary interpretation) provided by [facility]. Procedure Completed: 20:45 Preliminary ([facility]) Report: Dictated and Authenticated: 21:09 Final Interpretation: 08:27. June 06, 2018.
--- NOTE | 2018-06-06 08:31 | CT ---
Date of service: 06/05/2018 PROCEDURE: CT Cervical Spine without contrast HISTORY: r/o fx COMPARISON: None available. TECHNIQUE: Axial computed tomography images were obtained of the cervical spine without the use of intravenous contrast. Coronal and sagittal reformatted images were created and reviewed. Radiation dose: Total exam DLP = mGy-cm. This CT exam was performed using one or more of the following dose reduction techniques: Automated exposure control, adjustment of the mA and/or kV according to patient size, and/or use of iterative reconstruction technique. FINDINGS: VERTEBRAE: No fracture. Normal alignment. No destructive bony lesion. DISCS/SPINAL CANAL/NEURAL FORAMINA: No significant central canal or neural foraminal stenosis. Discs heights are grossly preserved. PARASPINAL SOFT TISSUES: Unremarkable. OTHER FINDINGS: None. IMPRESSION: No significant or acute findings to account for/ related to the clinical presentation. Concordant results (preliminary interpretation) provided by [facility]. Procedure Completed: 20:47 Preliminary ([facility]) Report: Dictated and Authenticated: 21:17 Final Interpretation: 08:30 June 06, 2018.
--- NOTE | 2018-06-06 09:59 | RAD ---
Date of service: 06/05/2018 PROCEDURE: CHEST RADIOGRAPH, 1 VIEW HISTORY: r/o ptx COMPARISON: 12/04/2017 FINDINGS: LUNGS: Clear. PLEURA: No pneumothorax or pleural fluid seen. CARDIOVASCULAR: Normal. OSSEOUS STRUCTURES: No significant abnormalities. VISUALIZED UPPER ABDOMEN: Normal. OTHER FINDINGS: None. IMPRESSION: No active disease.
[2018-06-06] MEDS ORDERED: Enoxaparin 40 mg Syringe SC SCH (10:00)
--- NOTE | 2018-06-06 10:23 | CP.PCM.CON ---
History of Present Illness - History of Present Illness History of Present Illness: Halima Adhikari PGY-1, Supervisor [employer], Neurology Consult Note Patient is a 52 year old female with past medical history seizures, CVA, COPD, Type 2 diabetes, anxiety presenting with chief complaint of syncope associated with a fall and head trauma. She states that yesterday just prior to this episode she saw "polka dots" in her vision and then her visual field became completely dark and she lost consciousness. She states that she was attended to by a passerby who happened to be a nurse who took her vital signs and advised her to go to the ED. However, she went home after which she began to experience multiple episodes of hematemesis, which prompted her to come to the ED. She states that within this past week she has also experienced a seizure, with a post ictal state involving loss of hearing and aphasia which is typical for her. She states she has never taken medications for her history of seizures due to her allergies to seizure medications. She admits to paresthesias in her fingertips. She denies changes in hearing, bowel or bladder incontinence. She also admits to hematochezia. PMH: seizures, CVA, COPD, Type 2 diabetes, anxiety Past surgical: cholecystectomy, appendectomy, hysterectomy, right ankle surgery Family history: father (, M.I.) Social history: smokes 3 PPD. Denies alcohol and recreational drug use Home medications: xanax, metformin 12 point ROS was benign except as stated in HPI Past Patient History - Infectious Disease Hx of Infectious Diseases: None - Tetanus Immunizations Tetanus Immunization: Unknown - Past Medical History & Family History Past Medical History?: Yes - Past Social History Smoking Status: Heavy Smoker > 10 Cigarettes Daily Alcohol: None Drugs: Denies - CARDIAC Hx Cardiac Disorders: No - PULMONARY Hx Respiratory Disorders: Yes Hx Bronchitis: Yes - NEUROLOGICAL Hx Neurological Disorder: Yes HX Cerebrovascular Accident: Yes Hx Seizures: Yes Hx Transient Ischemic Attacks (TIA): Yes Other/Comment: Neuropathy - HEENT Hx HEENT Problems: Yes (glasses) - RENAL Hx Chronic Kidney Disease: Yes Hx Kidney Stones: Yes (LITHOTRYPSY AND PASSED STONES) - ENDOCRINE/METABOLIC Hx Diabetes Mellitus Type 2: Yes - HEMATOLOGICAL/ONCOLOGICAL Hx Blood Disorders: No - INTEGUMENTARY Hx Dermatological Problems: No - MUSCULOSKELETAL/RHEUMATOLOGICAL Hx Musculoskeletal Disorders: Yes Hx Arthritis: Yes (Arthritis in the spine) - GASTROINTESTINAL Hx Gastrointestinal Disorders: Yes (ULCER,GASTRITIS,CONSTIPATION,CHOLECYSTECTOMY ,APPENDECTOMY) Other/Comment: FATTY LIVER,GAASTROENTERITIS, - GENITOURINARY/GYNECOLOGICAL Hx Genitourinary Disorders: No - PSYCHIATRIC Hx Anxiety: Yes Hx Depression: Yes Hx Substance Use: No - SURGICAL HISTORY Hx Appendectomy: Yes Hx Cholecystectomy: Yes Hx Hysterectomy: Yes Hx Orthopedic Surgery: Yes (Right ankle screw placed) Hx Tonsillectomy: Yes - ANESTHESIA Hx Anesthesia: Yes Hx Anesthesia Reactions: No Hx Malignant Hyperthermia: No Meds Allergies/Adverse Reactions: Allergies Allergy/AdvReac Type Severity Reaction Status Date / Time gabapentin Allergy ANAPHYLAXIS Verified 09/07/17 12:59 ketorolac tromethamine Allergy ANAPHYLAXIS Verified 09/07/17 12:59 [From Toradol] lurasidone [From Latuda] Allergy ANAPHYLAXIS Verified 06/05/18 23:42 NSAIDS (Non-Steroidal Allergy ANAPHYLAXIS Verified 09/07/17 12:59 Anti-Inflamma - Medications Medications: Current Medications Insulin Human Regular (Humulin R Low) 0 units SC ACHS [facility] PRN Reason: Protocol Pantoprazole Sodium (Protonix Ec Tab) 40 mg PO 0600 [facility] Last Admin: 06/06/18 05:08 Dose: Not Given Physical Exam - Constitutional Appears: Non-toxic, No Acute Distress - Head Exam Head Exam: ATRAUMATIC, NORMAL INSPECTION, NORMOCEPHALIC - Eye Exam Eye Exam: EOMI, Normal appearance, PERRL - ENT Exam ENT Exam: Mucous Membranes Moist, Normal Exam - Neck Exam Neck exam: Positive for: Normal Inspection - Respiratory Exam Respiratory Exam: Clear to Auscultation Bilateral, NORMAL BREATHING PATTERN - Cardiovascular Exam Cardiovascular Exam: REGULAR RHYTHM, +S1, +S2 - GI/Abdominal Exam GI & Abdominal Exam: Normal Bowel Sounds, Soft. absent: Distended, Firm, Guarding - Extremities Exam Extremities exam: Positive for: full ROM, normal inspection - Back Exam Back exam: NORMAL INSPECTION - Expanded Neurological Exam Expanded Patient oriented to: person, place, time Cranial nerves: EOM's Intact: Normal, Facial Sensation: Normal, Nystagmus: Normal, Tongue Deviation: Normal Ataxia: No Cerebellar Function: Finger to Nose: Normal, Heel to Anna: Normal Upper motor neuron: Pronator Drift: Normal Neuro motor strength exam: Left Upper Extremity: 5, Right Upper Extremity: 5, Left Lower Extremity: 5, Right Lower Extremity: 5 Coma Scale Eye Opening: SPONTANEOUS Coma Scale Motor Response: OBEYS COMMANDS Coma Scale Verbal: Oriented Coma Scale Total: 15 - Psychiatric Exam Psychiatric exam: Anxious - Skin Skin Exam: Dry, Intact, Normal Color Additional comments: Tattoos on right upper extremity Results - Vital Signs Recent Vital Signs: Last Vital Signs Temp 98.2 F 06/06/18 06:00 Pulse 85 06/06/18 06:00 Resp 20 06/06/18 06:00 BP 105/76 06/06/18 06:00 Pulse Ox 98 06/06/18 06:00 - Labs Result Diagrams: 06/06/18 06:15 06/06/18 06:15 Labs: Laboratory Results - last 24 hr 06/05/18 06/06/18 06/06/18 22:10 06:15 06:15 WBC 7.7 RBC 3.59 Hgb 11.0 L Hct 31.7 L MCV 88.3 MCH 30.6 MCHC 34.7 RDW 11.7 Plt Count 170 MPV 11.2 H Gran % 42.7 L Lymph % (Auto) 44.0 H [place] % (Auto) 9.5 H Eos % (Auto) 3.4 Baso % (Auto) 0.4 Gran # 3.30 Lymph # (Auto) 3.4 [place] # (Auto) 0.7 H Eos # (Auto) 0.3 Baso # (Auto) 0.03 Sodium Potassium Chloride Carbon Dioxide Anion Gap BUN Creatinine Est GFR ( Amer) Est GFR (Non-Af Amer) Random Glucose Calcium Total Bilirubin AST ALT Alkaline Phosphatase Troponin I Total Protein Albumin Globulin Albumin/Globulin Ratio Triglycerides Cholesterol LDL Cholesterol Direct HDL Cholesterol TSH 3rd Generation < 0.02 L Urine Opiates Screen Negative Urine Methadone Screen Negative Ur Barbiturates Screen Negative Ur Phencyclidine Scrn Negative Ur Amphetamines Screen Negative U Benzodiazepines Scrn Positive H U Oth Cocaine Metabols Negative U Cannabinoids Screen Negative 06/06/18 06:15 WBC RBC Hgb Hct MCV MCH MCHC RDW Plt Count MPV Gran % Lymph % (Auto) [place] % (Auto) Eos % (Auto) Baso % (Auto) Gran # Lymph # (Auto) [place] # (Auto) Eos # (Auto) Baso # (Auto) Sodium 144 Potassium 4.3 Chloride 108 H Carbon Dioxide 30 Anion Gap 11 BUN 15 Creatinine 0.5 L Est GFR ( Amer) > 60 Est GFR (Non-Af Amer) > 60 Random Glucose 104 Calcium 9.0 Total Bilirubin 0.5 AST 12 L D ALT 16 Alkaline Phosphatase 67 Troponin I < 0.01 Total Protein 5.4 L Albumin 3.1 Globulin 2.3 Albumin/Globulin Ratio 1.4 Triglycerides 41 Cholesterol 106 L LDL Cholesterol Direct 55 HDL Cholesterol 39 TSH 3rd Generation Urine Opiates Screen Urine Methadone Screen Ur Barbiturates Screen Ur Phencyclidine Scrn Ur Amphetamines Screen U Benzodiazepines Scrn U Oth Cocaine Metabols U Cannabinoids Screen Assessment & Plan - Assessment and Plan (Free Text) Assessment: Patient is a 52 year old female with past medical history seizures, CVA, COPD, Type 2 diabetes, anxiety presents with chief complaint of syncope and was found to have unremarkable head and cervical CT. Plan: Syncope - Vasovagal vs. TIA - Head CT shows no acute intracranial abnormalities - Cervical CT shows no significant or acute findings - Followup orthostatic vital signs - Followup carotid and verterbal ultrasound - Followup MRA head with contrast and brain MRI w/and without contrast to evaluate vertebrobasilar circulation - Followup EKG/ECHO - PT consulted - Neurochecks Q4H - Further recommendations per Dr. Espitia Patient not seen with but case was discussed with Dr. Espitia due to patient elopement. Halima Adhikari PGY-1
[2018-06-06] MEDS ORDERED: Miconazole 100 MG Vaginal Supp VG SCH (10:30)
--- NOTE | 2018-06-06 10:46 | RAD ---
Date of service: 06/05/2018 PROCEDURE: Radiographs of the pelvis. HISTORY: r/o fx COMPARISON: None. FINDINGS: BONES: Pelvic Bones: Unremarkable. Hips: Grossly unremarkable. JOINTS: Sacroiliac Joints: Unremarkable. Pubic Symphysis: Unremarkable. OTHER FINDINGS: None. IMPRESSION: Unremarkable radiographs of the pelvis.
--- NOTE | 2018-06-06 10:49 | RAD ---
Date of service: 06/05/2018 PROCEDURE: Radiographs of the Right Shoulder HISTORY: fall COMPARISON: No prior. FINDINGS: BONES: Normal. No fracture. JOINTS: Normal. Glenohumeral and acromioclavicular joints preserved. No osteoarthritis. SOFT TISSUES: Normal. OTHER FINDINGS: None. IMPRESSION: Normal radiographs of the right shoulder.
--- NOTE | 2018-06-06 10:50 | RAD ---
Date of service: 06/05/2018 PROCEDURE: Radiographs of the Lumbar Spine. HISTORY: r/o fx COMPARISON: No prior. FINDINGS: BONES: Normal alignment. No listhesis. No fracture. DISC SPACES: Unremarkable. OTHER FINDINGS: None. IMPRESSION: Unremarkable radiographs of the lumbar spine.
--- NOTE | 2018-06-06 13:11 | US ---
PROCEDURE: Bilateral carotid artery duplex ultrasound HISTORY: Carotid stenosis syncope PHYSICIAN(S): Héctor Rocha MD. TECHNIQUE: Duplex sonography and color-flow Doppler were used to evaluate the carotid bifurcations and limited segments of the vertebral arteries bilaterally. FINDINGS: There is mild smooth hypoechoic plaque noted at the carotid bifurcations bilaterally. The peak systolic velocity in the proximal right internal carotid artery is 95 cm/sec. This corresponds to a 20 to 39% proximal right ICA stenosis. Normal systolic velocities are noted in the proximal right external carotid artery. There is antegrade flow in the right vertebral artery. The peak systolic velocity in the proximal left internal carotid artery is 93 cm/sec. This corresponds to a 20 to 39% proximal left ICA stenosis. Normal systolic velocities are noted in the proximal left external carotid artery. There is antegrade flow in the left vertebral artery. IMPRESSION: 1. Bilateral 20-39% proximal ICA stenoses. 2. Antegrade flow in both vertebral arteries.
--- NOTE | 2018-06-06 13:27 | CP.PCM.DIS ---
Addendum entered and electronically signed by Tomás Farris 06/06/18 15:42: Patient was complaining of back pain and vaginal pruritus. Patient was not in acute distress on examination and was talking on her phone throughout the entire encounter. Patient was offered a pelvic and vaginal exam for her vaginal pruritus but refused the examination. Patient denies chest pain, shortness of breath, abdominal pain, nausea, vomitting. Original Note: <Tomás Farris - Last Filed: 06/06/18 15:12> Provider - Provider Date of Admission: 06/05/18 21:58 Attending physician: Abram Acevedo MD Primary care physician: Mark Nj MD Time Spent in preparation of Discharge (in minutes): 45 Diagnosis - Discharge Diagnosis (1) Syncope and collapse Status: Acute Priority: High (2) Chronic back pain Status: Chronic Priority: Medium (3) Vaginal pruritus Status: Acute Priority: Medium (4) Diabetes mellitus Status: Chronic Priority: Medium (5) Anxiety Status: Chronic Priority: Medium Hospital Course - Lab Results Lab Results: Most Recent Lab Values WBC 7.7 10^3/ul (4.5-11.0) 06/06/18 06:15 RBC 3.59 10^6/uL (3.5-6.1) 06/06/18 06:15 Hgb 11.0 g/dL (12.0-16.0) L 06/06/18 06:15 Hct 31.7 % (36.0-48.0) L 06/06/18 06:15 MCV 88.3 fl (80.0-105.0) 06/06/18 06:15 MCH 30.6 pg (25.0-35.0) 06/06/18 06:15 MCHC 34.7 g/dl (31.0-37.0) 06/06/18 06:15 RDW 11.7 % (11.5-14.5) 06/06/18 06:15 Plt Count 170 10^3/uL (120.0-450.0) 06/06/18 06:15 MPV 11.2 fl (7.0-11.0) H 06/06/18 06:15 Gran % 42.7 % (50.0-68.0) L 06/06/18 06:15 Lymph % (Auto) 44.0 % (22.0-35.0) H 06/06/18 06:15 [place] % (Auto) 9.5 % (1.0-6.0) H 06/06/18 06:15 Eos % (Auto) 3.4 % (1.5-5.0) 06/06/18 06:15 Baso % (Auto) 0.4 % (0.0-3.0) 06/06/18 06:15 Gran # 3.30 (1.4-6.5) 06/06/18 06:15 Lymph # (Auto) 3.4 (1.2-3.4) 06/06/18 06:15 [place] # (Auto) 0.7 (0.1-0.6) H 06/06/18 06:15 Eos # (Auto) 0.3 (0.0-0.7) 06/06/18 06:15 Baso # (Auto) 0.03 K/mm3 (0.0-2.0) 06/06/18 06:15 PT 12.9 SECONDS (9.4-12.5) H 06/05/18 20:02 INR 1.13 (0.93-1.08) H 06/05/18 20:02 APTT 37.1 Seconds (25.1-36.5) H 06/05/18 20:02 Sodium 144 mmol/L (132-148) 06/06/18 06:15 Potassium 4.3 mmol/L (3.6-5.0) 06/06/18 06:15 Chloride 108 mmol/L (98-107) H 06/06/18 06:15 Carbon Dioxide 30 mmol/L (21-33) 06/06/18 06:15 Anion Gap 11 (10-20) 06/06/18 06:15 BUN 15 mg/dL (7-21) 06/06/18 06:15 Creatinine 0.5 mg/dl (0.7-1.2) L 06/06/18 06:15 Est GFR ( Amer) > 60 06/06/18 06:15 Est GFR (Non-Af Amer) > 60 06/06/18 06:15 POC Glucose (mg/dL) 86 mg/dL (65-110) 06/06/18 07:17 Random Glucose 104 mg/dL (70-110) 06/06/18 06:15 Hemoglobin A1c 4.8 % (4.2-6.5) 06/06/18 06:15 Calcium 9.0 mg/dL (8.4-10.5) 06/06/18 06:15 Phosphorus 3.7 mg/dL (2.5-4.5) 06/05/18 20:02 Magnesium 1.8 mg/dL (1.7-2.2) 06/05/18 20:02 Total Bilirubin 0.5 mg/dL (0.2-1.3) 06/06/18 06:15 AST 12 U/L (14-36) L D 06/06/18 06:15 ALT 16 U/L (7-56) 06/06/18 06:15 Alkaline Phosphatase 67 U/L (38-126) 06/06/18 06:15 Lactate Dehydrogenase 362 U/L (333-699) 06/05/18 20:02 Total Creatine Kinase 22 U/L (35-230) L 06/05/18 20:02 Troponin I < 0.01 ng/mL 06/06/18 06:15 Total Protein 5.4 g/dL (5.8-8.3) L 06/06/18 06:15 Albumin 3.1 g/dL (3.0-4.8) 06/06/18 06:15 Globulin 2.3 gm/dL 06/06/18 06:15 Albumin/Globulin Ratio 1.4 (1.1-1.8) 06/06/18 06:15 Triglycerides 41 mg/dL (35-160) 06/06/18 06:15 Cholesterol 106 mg/dL (130-200) L 06/06/18 06:15 LDL Cholesterol Direct 55 mg/dL (0-129) 06/06/18 06:15 HDL Cholesterol 39 mg/dL (29-60) 06/06/18 06:15 TSH 3rd Generation < 0.02 mIU/mL (0.46-4.68) L 06/06/18 06:15 Urine Color Dark yellow (YELLOW) 06/05/18 20:02 Urine Appearance Slight-cloudy (CLEAR) 06/05/18 20:02 Urine pH 6.0 (4.7-8.0) 06/05/18 20:02 Ur Specific [place] 1.025 (1.005-1.035) 06/05/18 20:02 Urine Protein Trace mg/dL (<30 mg/dL) H 06/05/18 20:02 Urine Glucose (UA) Negative mg/dL (NEGATIVE) 06/05/18 20:02 Urine Ketones 15 mg/dL (NEGATIVE) H 06/05/18 20:02 Urine Blood Negative (NEGATIVE) 06/05/18 20:02 Urine Nitrate Negative (NEGATIVE) 06/05/18 20:02 Urine Bilirubin Small (NEGATIVE) H 06/05/18 20:02 Urine Urobilinogen 1.0 E.U./dL (<1 E.U./dL) H 06/05/18 20:02 Ur Leukocyte Esterase Negative [place]/uL (NEGATIVE) 06/05/18 20:02 Urine RBC Negative /hpf (0-2) 06/05/18 20:02 Urine WBC 0 - 2 /hpf (0-6) 06/05/18 20:02 Ur Epithelial Cells None /hpf (0-5) 06/05/18 20:02 Calcium Oxalate Crystal Small /hpf 06/05/18 20:02 Urine Opiates Screen Negative (NEGATIVE) 06/05/18 22:10 Urine Methadone Screen Negative (NEGATIVE) 06/05/18 22:10 Ur Barbiturates Screen Negative (NEGATIVE) 06/05/18 22:10 Ur Phencyclidine Scrn Negative (NEGATIVE) 06/05/18 22:10 Ur Amphetamines Screen Negative (NEGATIVE) 06/05/18 22:10 U Benzodiazepines Scrn Positive (NEGATIVE) H 06/05/18 22:10 U Oth Cocaine Metabols Negative (NEGATIVE) 06/05/18 22:10 U Cannabinoids Screen Negative (NEGATIVE) 06/05/18 22:10 - Hospital Course Hospital Course: Ms. Wiseman is a 52 yo female with a PMH of COPD, DM2, Depression/Anxiety/ Dissociative identity disorder/Schizophrenia who presents to the [facility] for fall with LOC. She remembers feeling dizzy while on her way to the post office to mail a letter. She was complaining of a very bad headache and back pain was requesting for pain medications. Patient was given 2 doses of morphine in the ED. Patient states that the morphine did not help at all. She was given one dose of percocet later that night. Patient also requested xanax and miconazole suppository for her vaginal pruritus. Head CT, chest xray, EKG, cervical spine CT, shoulder/lumbar spine/pelvis xrays, echocardiogram, and carotid artery ultrasound were done. Head CT, chest xray, and cervical spine CT showed no acute findings. EKG showed normal sinus rhythm at 88 bpm. Shoulder/lumbar spine/ pelvis xrays showed no fractures or any abnormalities. Carotid artery ultrasound was normal. Echocardiogram results are pending. Neurology (Dr. Adams) was consulted and recommended the patient to get MRA and MRI. The tests were not done. The patient eloped and refused to sign AMA on 06/06/2018 at 12:51 PM. Discharge Exam - Head Exam Head Exam: ATRAUMATIC, NORMAL INSPECTION, NORMOCEPHALIC - Eye Exam Eye Exam: Normal appearance - ENT Exam ENT Exam: Mucous Membranes Moist - Respiratory Exam Respiratory Exam: Clear to PA & Lateral. absent: Rales, Rhonchi, Wheezes - Cardiovascular Exam Cardiovascular Exam: REGULAR RHYTHM, +S1, +S2. absent: Gallop, Rubs, Systolic Murmur - GI/Abdominal Exam GI & Abdominal Exam: Normal Bowel Sounds, Soft. absent: Tenderness - Extremities Exam Additional comments: no calf tenderness or pedal edema - Neurological Exam Neurological exam: Alert, Oriented x3 - Psychiatric Exam Psychiatric exam: Normal Affect, Normal Mood - Skin Skin Exam: Dry, Normal Color, Warm Discharge Plan - Follow Up Plan Condition: GOOD Disposition: ELOPED FROM NURSING UNIT Referrals: Mark Nj MD [Primary Care Provider] - <Abram Acevedo - Last Filed: 06/07/18 15:04> Provider - Provider Date of Admission: 06/05/18 21:58 Attending physician: Abram Acevedo MD Primary care physician: Mark Nj MD Hospital Course - Lab Results Lab Results: Most Recent Lab Values WBC 7.7 10^3/ul (4.5-11.0) 06/06/18 06:15 RBC 3.59 10^6/uL (3.5-6.1) 06/06/18 06:15 Hgb 11.0 g/dL (12.0-16.0) L 06/06/18 06:15 Hct 31.7 % (36.0-48.0) L 06/06/18 06:15 MCV 88.3 fl (80.0-105.0) 06/06/18 06:15 MCH 30.6 pg (25.0-35.0) 06/06/18 06:15 MCHC 34.7 g/dl (31.0-37.0) 06/06/18 06:15 RDW 11.7 % (11.5-14.5) 06/06/18 06:15 Plt Count 170 10^3/uL (120.0-450.0) 06/06/18 06:15 MPV 11.2 fl (7.0-11.0) H 06/06/18 06:15 Gran % 42.7 % (50.0-68.0) L 06/06/18 06:15 Lymph % (Auto) 44.0 % (22.0-35.0) H 06/06/18 06:15 [place] % (Auto) 9.5 % (1.0-6.0) H 06/06/18 06:15 Eos % (Auto) 3.4 % (1.5-5.0) 06/06/18 06:15 Baso % (Auto) 0.4 % (0.0-3.0) 06/06/18 06:15 Gran # 3.30 (1.4-6.5) 06/06/18 06:15 Lymph # (Auto) 3.4 (1.2-3.4) 06/06/18 06:15 [place] # (Auto) 0.7 (0.1-0.6) H 06/06/18 06:15 Eos # (Auto) 0.3 (0.0-0.7) 06/06/18 06:15 Baso # (Auto) 0.03 K/mm3 (0.0-2.0) 06/06/18 06:15 PT 12.9 SECONDS (9.4-12.5) H 06/05/18 20:02 INR 1.13 (0.93-1.08) H 06/05/18 20:02 APTT 37.1 Seconds (25.1-36.5) H 06/05/18 20:02 Sodium 144 mmol/L (132-148) 06/06/18 06:15 Potassium 4.3 mmol/L (3.6-5.0) 06/06/18 06:15 Chloride 108 mmol/L (98-107) H 06/06/18 06:15 Carbon Dioxide 30 mmol/L (21-33) 06/06/18 06:15 Anion Gap 11 (10-20) 06/06/18 06:15 BUN 15 mg/dL (7-21) 06/06/18 06:15 Creatinine 0.5 mg/dl (0.7-1.2) L 06/06/18 06:15 Est GFR ( Amer) > 60 06/06/18 06:15 Est GFR (Non-Af Amer) > 60 06/06/18 06:15 POC Glucose (mg/dL) 86 mg/dL (65-110) 06/06/18 07:17 Random Glucose 104 mg/dL (70-110) 06/06/18 06:15 Hemoglobin A1c 4.8 % (4.2-6.5) 06/06/18 06:15 Calcium 9.0 mg/dL (8.4-10.5) 06/06/18 06:15 Phosphorus 3.7 mg/dL (2.5-4.5) 06/05/18 20:02 Magnesium 1.8 mg/dL (1.7-2.2) 06/05/18 20:02 Total Bilirubin 0.5 mg/dL (0.2-1.3) 06/06/18 06:15 AST 12 U/L (14-36) L D 06/06/18 06:15 ALT 16 U/L (7-56) 06/06/18 06:15 Alkaline Phosphatase 67 U/L (38-126) 06/06/18 06:15 Lactate Dehydrogenase 362 U/L (333-699) 06/05/18 20:02 Total Creatine Kinase 22 U/L (35-230) L 06/05/18 20:02 Troponin I < 0.01 ng/mL 06/06/18 06:15 Total Protein 5.4 g/dL (5.8-8.3) L 06/06/18 06:15 Albumin 3.1 g/dL (3.0-4.8) 06/06/18 06:15 Globulin 2.3 gm/dL 06/06/18 06:15 Albumin/Globulin Ratio 1.4 (1.1-1.8) 06/06/18 06:15 Triglycerides 41 mg/dL (35-160) 06/06/18 06:15 Cholesterol 106 mg/dL (130-200) L 06/06/18 06:15 LDL Cholesterol Direct 55 mg/dL (0-129) 06/06/18 06:15 HDL Cholesterol 39 mg/dL (29-60) 06/06/18 06:15 TSH 3rd Generation < 0.02 mIU/mL (0.46-4.68) L 06/06/18 06:15 Urine Color Dark yellow (YELLOW) 06/05/18 20:02 Urine Appearance Slight-cloudy (CLEAR) 06/05/18 20:02 Urine pH 6.0 (4.7-8.0) 06/05/18 20:02 Ur Specific [place] 1.025 (1.005-1.035) 06/05/18 20:02 Urine Protein Trace mg/dL (<30 mg/dL) H 06/05/18 20:02 Urine Glucose (UA) Negative mg/dL (NEGATIVE) 06/05/18 20:02 Urine Ketones 15 mg/dL (NEGATIVE) H 06/05/18 20:02 Urine Blood Negative (NEGATIVE) 06/05/18 20:02 Urine Nitrate Negative (NEGATIVE) 06/05/18 20:02 Urine Bilirubin Small (NEGATIVE) H 06/05/18 20:02 Urine Urobilinogen 1.0 E.U./dL (<1 E.U./dL) H 06/05/18 20:02 Ur Leukocyte Esterase Negative [place]/uL (NEGATIVE) 06/05/18 20:02 Urine RBC Negative /hpf (0-2) 06/05/18 20:02 Urine WBC 0 - 2 /hpf (0-6) 06/05/18 20:02 Ur Epithelial Cells None /hpf (0-5) 06/05/18 20:02 Calcium Oxalate Crystal Small /hpf 06/05/18 20:02 Urine Opiates Screen Negative (NEGATIVE) 06/05/18 22:10 Urine Methadone Screen Negative (NEGATIVE) 06/05/18 22:10 Ur Barbiturates Screen Negative (NEGATIVE) 06/05/18 22:10 Ur Phencyclidine Scrn Negative (NEGATIVE) 06/05/18 22:10 Ur Amphetamines Screen Negative (NEGATIVE) 06/05/18 22:10 U Benzodiazepines Scrn Positive (NEGATIVE) H 06/05/18 22:10 U Oth Cocaine Metabols Negative (NEGATIVE) 06/05/18 22:10 U Cannabinoids Screen Negative (NEGATIVE) 06/05/18 22:10 Attending/Attestation - Attestation I have personally seen and examined this patient.: Yes I have fully participated in the care of the patient.: Yes I have reviewed all pertinent clinical information, including history, physical exam and plan: Yes Notes (Text): 06/07/18 14:52 attending note; patient seen and examined with the resident. Patient was on the phone during our interview and examination. Patient is constantly requesting pain medication. Not in any acute distress. Vitals stable. Chart reviewed. Patient is a 52 year female with PMH of COPD, DM2, Depression/Anxiety/ Dissociative identity disorder/Schizophrenia, benzodiazepine dependency, opiate dependency is admitted after fall. history is very unreliable. patient said she was in the post office and passed out in the afternoon. She was brought in to the ER in the evening. After a fall she was able to walk. Patient had CT head and cervical spine done in the ER which was negative. No obvious injury noted. Patient is requesting IV pain medication. Currently does not appear to be in any pain. Patient is also complaining of vaginal itching. Refused pelvic examination. Stated that she was examined by nighttime attending. Asking for vaginal suppository. labs reviewed. CT head, CT cervical spine, lumbar x-ray, pelvis x-ray, chest x-ray all negative. sort line worker evaluation appreciated in discharge planning. Addendum; Patient pulled her IV out and walked out of the hospital. Did not sign AMA form. 06/07/18 15:04 06/07/18 15:04
--- NOTE | 2018-06-06 18:31 | CARD ---
APPROVED REPORT Date of service: 06/06/2018 EXAM: Two-dimensional and M-mode echocardiogram with Doppler and color Doppler. INDICATION Syncope 2D DIMENSIONS Left Atrium (2D)3.5 (1.6-4.0cm)IVSd0.9 (0.7-1.1cm) LVDd3.8 (3.9-5.9cm)PWd1.1 (0.7-1.1cm) LVDs2.9 (2.5-4.0cm)FS (%) 23.7 % LVEF (%)48.0 (>50%) M-Mode DIMENSIONS Aortic Root2.20 (2.2-3.7cm)Aortic Cusp Exc.1.50 (1.5-2.0cm) Aortic Valve AoV Peak Zdbosmam815.0cm/Jovanna Peak GR.8mmHg Mitral Valve MV E Urnwrfwi69.7cm/sMV A Dvwlthqg25.5cm/sE/A ratio1.2 TDI E/Lateral E'0.0E/Medial E'0.0 Tricuspid Valve TR Peak [id number]/sRAP [id number] Peak Gr.17mmHg [id number] LEFT VENTRICLE The left ventricle is normal size. There is normal left ventricular wall thickness. Left ventricle systolic function is borderline. Transmitral Doppler flow pattern is Grade I-abnormal relaxation pattern. RIGHT VENTRICLE The right ventricle is normal size. There is normal right ventricular wall thickness. The right ventricular systolic function is normal. ATRIA The left atrium size is normal. The right atrium size is normal. AORTIC VALVE The aortic valve is normal in structure. No aortic regurgitation is present. There is no aortic valvular stenosis. MITRAL VALVE The mitral valve is normal in structure. Mitral regurgitation is trace to mild. There is no mitral valve stenosis. TRICUSPID VALVE The tricuspid valve is normal in structure. There is trace to mild tricuspid regurgitation. PULMONIC VALVE The pulmonary valve is normal in structure. There is no pulmonic valvular regurgitation. GREAT VESSELS The aortic root is normal in size. The IVC is normal in size and collapses >50% with inspiration. PERICARDIAL EFFUSION There is no pericardial effusion. <Conclusion> The left ventricle is normal size. There is normal left ventricular wall thickness. Left ventricle systolic function is borderline. Transmitral Doppler flow pattern is Grade I-abnormal relaxation pattern. Mitral regurgitation is trace to mild. There is trace to mild tricuspid regurgitation.
--- NOTE | 2018-06-06 18:40 | CARD ---
APPROVED REPORT Date of service: 06/06/2018 EKG Measurement Heart [id number] <Conclusion> Normal sinus rhythm Normal ECG
--- NOTE | 2018-06-06 18:48 | CARD ---
APPROVED REPORT Date of service: 06/05/2018 EKG Measurement Heart [id number] <Conclusion> Normal sinus rhythm Normal ECG
== END 2018-06-06 13:09 | disposition left against medical advice (07) ==
LOC: ED 18:20 → ERH 21:58 → INTOOBSV 21:58 → ERH 22:30 → 2RSO 23:26
PROVIDERS: ADMIT Internal Medicine; ATTEND Internal Medicine
DX: R55 Syncope and collapse (principal); L29.9 Pruritus, unspecified; F41.9 Anxiety disorder, unspecified; J44.9 Chronic obstructive pulmonary disease, unspecified; E11.22 Type 2 diabetes mellitus with diabetic chronic kidney disease; N18.9 Chronic kidney disease, unspecified; E11.40 Type 2 diabetes mellitus with diabetic neuropathy, unspecified; F20.9 Schizophrenia, unspecified; F44.81 Dissociative identity disorder; F32.9 Major depressive disorder, single episode, unspecified; F17.210 Nicotine dependence, cigarettes, uncomplicated; M54.5 Low back pain; G89.29 Other chronic pain; Z79.84 Long term (current) use of oral hypoglycemic drugs
CPT/HCPCS: 36415; 70450; 71045; 72100; 72125; 72170; 73030; 80053; 80061; 80324; 80345; 80346; 80349; 80353; 80358; 80361; 81001; 82550; 82948; 83036; 83615; 83735; 83992; 84100; 84443; 84484; 85025; 85610; 85730; 87040; 87086; 93005; 93306; 93880; 96374; 96376; 99285; G0378; J2270; J7030

== ENCOUNTER 2018-12-07 01:51 | Observation (INO) | payer MEDICAID ==
[2018-12-07 01:51] VITALS: BMI 16.5
[2018-12-07] MEDS ORDERED: Sodium Chloride 0.9% 1,000 ML IV STA (03:05)
[2018-12-07] MEDS ORDERED: Iohexol 350 MG/100 ML VIAL ONE (03:28)
--- NOTE | 2018-12-07 03:30 | ED PDOC ---
Arrival/HPI - General Chief Complaint: GI Problem Time Seen by Provider: 12/07/18 02:12 Historian: Patient - History of Present Illness Narrative History of Present Illness (Text): 12/07/18 02:57 53 year old female, whose past medical history includes COPD, diabetes, depression, anxiety, cholecystectomy, and hx diverticulitis, presents to the emergency department complaining of sudden onset of diarrhea for the past 5 days. Patient is losing control of her bowels and is unable to make it to the bathroom after every single meal. Patient report she began feeling feverish yesterday and reports 2 episodes of vomiting today. Patient took anti-diarrhea medication with no relief. She also is complaining of a nonproductive cough for 5 days with slight shortness of breath. While in the Emergency department patient noted blood in her urine. Patient denies any chills, chest pain, back pain, neck pain, headache, dizziness, or any other complaints. PMD: Dr. Imelda Soto Time/Duration: Other (5 days) Symptom Onset: Gradual Symptom Course: Unchanged Activities at Onset: Light Context: Home Past Medical History - Provider Review Nursing Documentation Reviewed: Yes - Infectious Disease Hx of Infectious Diseases: None - Tetanus Immunization Tetanus Immunization: Unknown - Cardiac Hx Cardiac Disorders: No - Pulmonary Hx Respiratory Disorders: Yes Hx Bronchitis: Yes - Neurological Hx Neurological Disorder: Yes HX Cerebrovascular Accident: Yes Hx Seizures: Yes Hx Transient Ischemic Attacks (TIA): Yes Other/Comment: Neuropathy - HEENT Hx HEENT Disorder: Yes (glasses) - Renal Hx Renal Disorder: Yes Hx Kidney Stones: Yes (LITHOTRYPSY AND PASSED STONES) - Endocrine/Metabolic Hx Endocrine Disorders: Yes Hx Diabetes Mellitus Type 2: Yes - Hematological/Oncological Hx Blood Disorders: No - Integumentary Hx Dermatological Disorder: No - Musculoskeletal/Rheumatological Hx Musculoskeletal Disorders: Yes Hx Arthritis: Yes (Arthritis in the spine) - Gastrointestinal Hx Gastrointestinal Disorders: Yes (ULCER,GASTRITIS,CONSTIPATION,CHOLECYSTECTOMY,APPENDECTOMY) Hx Gall Bladder Disease: Yes Other/Comment: FATTY LIVER,GAASTROENTERITIS, - Genitourinary/Gynecological Hx Genitourinary Disorders: No - Psychiatric Hx Psychophysiologic Disorder: Yes Hx Anxiety: Yes Hx Depression: Yes Hx Substance Use: No - Past Surgical History Past Surgical History: Non-Contributing - Surgical History Hx Appendectomy: Yes Hx Cholecystectomy: Yes Hx Hysterectomy: Yes Hx Orthopedic Surgery: Yes (Right ankle screw placed) Hx Tonsillectomy: Yes - Anesthesia Hx Anesthesia: Yes Hx Anesthesia Reactions: No Hx Malignant Hyperthermia: No - Suicidal Assessment Feels Threatened In Home Enviroment: No Family/Social History - Physician Review Nursing Documentation Reviewed: Yes Family/Social History: No Known Family HX Smoking Status: Light Smoker < 10 Cigarettes Daily Hx Alcohol Use: No Hx Substance Use: No Hx Substance Use Treatment: No Allergies/Home Meds Allergies/Adverse Reactions: Allergies gabapentin Allergy (Verified 09/07/17 12:59) ANAPHYLAXIS ketorolac tromethamine [From Toradol] Allergy (Verified 09/07/17 12:59) ANAPHYLAXIS lurasidone [From Latuda] Allergy (Verified 06/05/18 23:42) ANAPHYLAXIS NSAIDS (Non-Steroidal Anti-Inflamma Allergy (Verified 09/07/17 12:59) ANAPHYLAXIS Home Medications: Home Meds Medication Instructions Recorded Confirmed Alprazolam [Xanax] 2 mg PO TID PRN 06/05/18 12/07/18 Review of Systems - Physician Review All systems were reviewed & negative as marked: Yes - Review of Systems Constitutional: Fevers. absent: Other (Chills) Respiratory: SOB, Cough Cardiovascular: absent: Chest Pain Gastrointestinal: Diarrhea, Nausea, Vomiting Genitourinary Female: Hematuria. absent: Dysuria, Frequency Musculoskeletal: absent: Back Pain, Neck Pain Neurological: absent: Headache, Dizziness Physical Exam Vital Signs Reviewed: Yes Vital Signs Temp Pulse Resp BP Pulse Ox 12/07/18 02:26 97.7 F 95 H 18 121/78 100 Temperature: Afebrile Blood Pressure: Normal Pulse: Regular Respiratory Rate: Normal Appearance: Positive for: Well-Appearing, Non-Toxic, Comfortable Pain Distress: None Mental Status: Positive for: Alert and Oriented X 3 - Systems Exam Head: Present: Atraumatic, Normocephalic Pupils: Present: PERRL Extroacular Muscles: Present: EOMI Conjunctiva: Present: Normal Mouth: Present: Moist Mucous Membranes Neck: Present: Normal Range of Motion Respiratory/Chest: Present: Clear to Auscultation, Good Air Exchange. No: Respiratory Distress, Accessory Muscle Use Cardiovascular: Present: Regular Rate and Rhythm, Normal S1, S2. No: Murmurs Abdomen: Present: Tenderness (difuse). No: Distention, Peritoneal Signs, Rebound, Guarding Back: Present: CVA Tenderness ([id number] ) Upper Extremity: Present: Normal Inspection. No: Cyanosis, Edema Lower Extremity: Present: Edema (trace) Neurological: Present: GCS=15, CN II-XII Intact, Speech Normal Skin: Present: Warm, Dry, Normal Color. No: Rashes Psychiatric: Present: Alert, Oriented x 3, Normal Insight, Normal Concentration Medical Decision Making ED Course and Treatment: 12/07/18 03:00 Impression: 53 year old female presents complaining of diarrhea for the past 5 days associated with vomiting today , dry cough, slight shortness of breath, and hematuria. Plan: -- CT abd & pelvis IV Contrast -- Labs -- Chest X-ray -- Bentyl, IV Fluids, Zofran Inj -- Urinalysis -- Reassess and disposition Prior Visits: Notes and results from previous visits were reviewed. Progress Notes: CT SCAN OF THE ABDOMEN AND PELVIS WITH CONTRAST. Electronically signed on Dec 07, 2018 5:14:20 AM EST by: Calvin Marcelo M.D., IMPRESSION: Uncomplicated enterocolitis. 12/07/18 05:32 CXR Impression: As read by me, No acute disease Patient not improved after IV fluids, zofran, bentyl, immodium. States that she feels weak. Patient also reports that she was diagnosed with ulcerative colitis in the past, states that diagnosis was made here "this time last year". However no colonoscopy reports found in previous records. Nonetheless will admit patient for diarrhea, given possible history of inflammatory bowel disease. Case discussed with Dr. Acevedo who accepts patient to her service for admission. - Lab Interpretations I have reviewed the lab results: Yes - RAD Interpretation Tobacco Cutter: ED Physician, Radiologist - Scribe Statement The provider has reviewed the documentation as recorded by the Odalis Maldonado Provider Scribe Attestation: All medical record entries made by the Odalis were at my direction and personally dictated by me. I have reviewed the chart and agree that the record accurately reflects my personal performance of the history, physical exam, medical decision making, and the department course for this patient. I have also personally directed, reviewed, and agree with the discharge instructions and disposition. Disposition/Present on Arrival - Present on Arrival Any Indicators Present on Arrival: No History of DVT/PE: No History of Uncontrolled Diabetes: No Urinary Catheter: No History of Decub. Ulcer: No History Surgical Site Infection Following: None - Disposition Have Diagnosis and Disposition been Completed?: Yes Diagnosis: Diarrhea, Abdominal pain, Vomiting Disposition: HOSPITALIZED Disposition Time: 07:15 Condition: STABLE
[2018-12-07 03:33] LABS: BASO # 0.02 K/mm3 (0.0-2.0); BASO % 0.4 % (0.0-3.0); EOS # 0.1 (0.0-0.7); EOS % 1.5 % (1.5-5.0); GRAN # 2.41 (1.4-6.5); HEMOGLOBIN 14.4 g/dL (12.0-16.0); LYMPH # 1.5 (1.2-3.4); LYMPH % 32.1 % (22.0-35.0); MEAN CELL VOLUME 90.3 fl (80.0-105.0); MEAN CORPUSCULAR HEMOGLOBIN 31.7 pg (25.0-35.0); MEAN CORPUSCULAR HGB CONC 35.1 g/dl (31.0-37.0); MEAN PLATELET VOLUME 11.2 fl (7.0-11.0); MONO # 0.7 (0.1-0.6); RBC 4.54 10^6/uL (3.5-6.1); RED CELL DISTRIBUTION WIDTH 11.9 % (11.5-14.5); WHITE BLOOD COUNT 4.7 10^3/uL (4.5-11.0)
[2018-12-07 03:44] LABS: ALB/GLOB RATIO 1.3 (1.1-1.8); ALBUMIN 4.1 g/dL (3.0-4.8); ALT/SGPT 33 U/L (7-56); AST/SGOT 30 U/L (14-36); BLOOD UREA NITROGEN 20 mg/dL (7-21); CALCIUM 9.7 mg/dL (8.4-10.5); GFR NON-AFRICAN AMERICAN > 60; LIPASE 55 U/L (23-300)
[2018-12-07] MEDS ORDERED: Sodium Chloride 0.9% 1,000 ML IV SCH ×2 (07:45→08:00)
[2018-12-07] MEDS ORDERED: Albuterol-Ipratrop 3 mg / 0.5 (3 ml) UD IH PRN (07:51)
--- NOTE | 2018-12-07 07:56 | CP.PCM.HP ---
<MomoJosias - Last Filed: 12/07/18 12:40> History of Present Illness - History of Present Illness History of Present Illness: Josias Barr PGY1, History and Physical for Kristina Pt is a 53 yo female with a PMH COPD, DM2, Depression/Anxiety/?Schizophrenia who presents to the emergency department complaining of abdominal pain, headache, diarrhea (BRBPR), nausea, non bloody/non billious vomiting, and chest pain. Pt states the diarrhea and vomiting started 1 week ago. She reports vague abdominal pain which she claims is 10/10 and in all 4 quadrants. She is unable to characterize the pain, she states "it just hurts". During the interview she states she now has a headache. She also claims to have chest pain during the interview which is is in the center of her chest and travels across her breasts. A 12 point ROS was obtained and added to the HPI where appropriate. PMH: COPD, DM2, Depression/Anxiety/?Schizophrenia PSH: cholecystectomy, appendectomy, hysterectomy, right ankle surgery, "kidney stone surgery" FH: father: 36yo "heart attack", mother: unknown SH: tobacco- 60pack year, alcohol- denies, drug use- denies Meds: Metformin 1000mg po TID, Xanax 2mg po QID Allergies: Gabapentin, Ibuprofen, Ketorolac, Lurasidone Present on Admission - Present on Admission Any Indicators Present on Admission: No Past Patient History - Infectious Disease Hx of Infectious Diseases: None - Tetanus Immunizations Tetanus Immunization: Unknown - Past Medical History & Family History Past Medical History?: Yes - Past Social History Smoking Status: Light Smoker < 10 Cigarettes Daily - CARDIAC Hx Cardiac Disorders: No - PULMONARY Hx Respiratory Disorders: Yes Hx Bronchitis: Yes - NEUROLOGICAL Hx Neurological Disorder: Yes HX Cerebrovascular Accident: Yes Hx Seizures: Yes Hx Transient Ischemic Attacks (TIA): Yes Other/Comment: Neuropathy - HEENT Hx HEENT Problems: Yes (glasses) - RENAL Hx Chronic Kidney Disease: Yes Hx Kidney Stones: Yes (LITHOTRYPSY AND PASSED STONES) - ENDOCRINE/METABOLIC Hx Endocrine Disorders: Yes Hx Diabetes Mellitus Type 2: Yes - HEMATOLOGICAL/ONCOLOGICAL Hx Blood Disorders: No - INTEGUMENTARY Hx Dermatological Problems: No - MUSCULOSKELETAL/RHEUMATOLOGICAL Hx Musculoskeletal Disorders: Yes Hx Arthritis: Yes (Arthritis in the spine) - GASTROINTESTINAL Hx Gastrointestinal Disorders: Yes (ULCER,GASTRITIS,CONS TIPATION,CHOLECYSTECTOMY,APPENDECTOMY) Hx Gall Bladder Disease: Yes Other/Comment: FATTY LIVER,GAASTROENTERITIS, - GENITOURINARY/GYNECOLOGICAL Hx Genitourinary Disorders: No - PSYCHIATRIC Hx Psychophysiologic Disorder: Yes Hx Anxiety: Yes Hx Depression: Yes Hx Substance Use: No - SURGICAL HISTORY Hx Appendectomy: Yes Hx Cholecystectomy: Yes Hx Hysterectomy: Yes Hx Orthopedic Surgery: Yes (Right ankle screw placed) Hx Tonsillectomy: Yes - ANESTHESIA Hx Anesthesia: Yes Hx Anesthesia Reactions: No Hx Malignant Hyperthermia: No Meds Allergies/Adverse Reactions: Allergies Allergy/AdvReac Type Severity Reaction Status Date / Time gabapentin Allergy ANAPHYLAXIS Verified 09/07/17 12:59 ketorolac tromethamine Allergy ANAPHYLAXIS Verified 09/07/17 12:59 [From Toradol] lurasidone [From Latuda] Allergy ANAPHYLAXIS Verified 06/05/18 23:42 NSAIDS (Non-Steroidal Allergy ANAPHYLAXIS Verified 09/07/17 12:59 Anti-Inflamma Physical Exam - Constitutional Appears: No Acute Distress - Head Exam Head Exam: ATRAUMATIC, NORMOCEPHALIC - Eye Exam Eye Exam: EOMI - ENT Exam ENT Exam: Mucous Membranes Moist - Neck Exam Neck exam: Positive for: Full Rom - Respiratory Exam Respiratory Exam: Clear to Auscultation Bilateral, NORMAL BREATHING PATTERN. absent: Accessory Muscle Use, Respiratory Distress - Cardiovascular Exam Cardiovascular Exam: REGULAR RHYTHM, RRR, +S1, +S2. absent: Diastolic murmur, Systolic Murmur - GI/Abdominal Exam GI & Abdominal Exam: Normal Bowel Sounds, Soft, Tenderness Additional comments: mild tenderness to palpation - Extremities Exam Extremities exam: Positive for: full ROM, normal inspection, pedal pulses present. Negative for: calf tenderness, pedal edema - Neurological Exam Neurological exam: Alert, Normal Gait, Oriented x3 - Skin Skin Exam: Dry, Normal Color, Warm Results - Vital Signs Recent Vital Signs: Last Vital Signs Temp 97.7 F 12/07/18 02:26 Pulse 84 12/07/18 06:00 Resp 18 12/07/18 06:00 BP 116/80 12/07/18 06:00 Pulse Ox 97 12/07/18 06:00 - Labs Result Diagrams: 12/07/18 03:15 12/07/18 03:15 Labs: Laboratory Results - last 24 hr 12/07/18 12/07/18 03:15 03:15 WBC 4.7 RBC 4.54 Hgb 14.4 D Hct 41.0 MCV 90.3 MCH 31.7 MCHC 35.1 RDW 11.9 Plt Count 155 MPV 11.2 H Gran % 51.0 Lymph % (Auto) 32.1 [place] % (Auto) 15.0 H Eos % (Auto) 1.5 Baso % (Auto) 0.4 Gran # 2.41 Lymph # (Auto) 1.5 [place] # (Auto) 0.7 H Eos # (Auto) 0.1 Baso # (Auto) 0.02 Sodium 144 Potassium 4.0 Chloride 107 Carbon Dioxide 27 Anion Gap 14 BUN 20 Creatinine 0.6 L Est GFR ( Amer) > 60 Est GFR (Non-Af Amer) > 60 Random Glucose 85 Calcium 9.7 Total Bilirubin 0.8 AST 30 ALT 33 Alkaline Phosphatase 90 Total Protein 7.1 Albumin 4.1 Globulin 3.1 Albumin/Globulin Ratio 1.3 Lipase 55 Assessment & Plan - Assessment and Plan (Free Text) Assessment: Pt is a 53 yo female with a PMH COPD, DM2, Depression/Anxiety/?Schizophrenia who presents to the emergency department complaining of abdominal pain, headache, diarrhea (BRBPR), nausea, non bloody/non billious vomiting, and chest pain. Plan: Diarrhea and Vomiting - no leukocytosis, afebrile - UDS - TSH - Mg phos - stool culture follow up - c diff follow up - fecal leukocytes - metronidazole - morphine for pain control - zofran - CTAP: pending - GI consulted COPD - duonebs Chest Pain - doubt cardiac origin - trop negative DM - HA1C 4.8 from 06/06/18 - continue to monitor Tobacco Abuse - encouraged pt to quit Anxiety - continue home xanax 1mg q8 Ppx - protonix Pt seen, examined, assessment and plan discussed with Dr Kristina Barr PGY1, Internal Medicine Resident - Date & Time Date: 12/07/18 Time: 11:31 <Abram Acevedo - Last Filed: 12/08/18 16:53> Results - Vital Signs Recent Vital Signs: Last Vital Signs Temp 98.5 F 12/08/18 00:00 Pulse 93 H 12/08/18 06:00 Resp 20 12/08/18 00:00 BP 99/66 L 12/08/18 00:00 Pulse Ox 97 12/08/18 00:00 - Labs Result Diagrams: 12/08/18 05:00 12/08/18 05:00 Labs: Laboratory Results - last 24 hr 12/07/18 12/07/18 12/07/18 19:57 21:07 21:57 WBC RBC Hgb Hct MCV MCH MCHC RDW Plt Count MPV Neut % (Auto) Lymph % (Auto) [place] % (Auto) Eos % (Auto) Baso % (Auto) Lymph # (Auto) [place] # (Auto) Eos # (Auto) Baso # (Auto) Absolute Neuts (auto) Sodium Potassium Chloride Carbon Dioxide Anion Gap BUN Creatinine Est GFR ( Amer) Est GFR (Non-Af Amer) POC Glucose (mg/dL) 106 Random Glucose Calcium Phosphorus Magnesium Total Bilirubin AST ALT Alkaline Phosphatase Troponin I < 0.01 Total Protein Albumin Globulin Albumin/Globulin Ratio TSH 3rd Generation Urine Color Yellow Urine Appearance Clear Urine pH 6.0 Ur Specific Jack 1.025 Urine Protein Negative Urine Glucose (UA) Negative Urine Ketones Trace H Urine Blood Negative Urine Nitrate Negative Urine Bilirubin Negative Urine Urobilinogen 2.0 H Ur Leukocyte Esterase Negative Urine Opiates Screen Urine Methadone Screen Ur Barbiturates Screen Ur Phencyclidine Scrn Ur Amphetamines Screen U Benzodiazepines Scrn U Oth Cocaine Metabols U Cannabinoids Screen 12/07/18 12/08/18 12/08/18 21:57 05:00 05:00 WBC 6.0 D RBC 3.61 Hgb 11.0 L D Hct 32.3 L MCV 89.5 MCH 30.5 MCHC 34.1 RDW 11.8 Plt Count 148 MPV 11.1 H Neut % (Auto) 53.7 Lymph % (Auto) 31.3 [place] % (Auto) 12.8 H Eos % (Auto) 2.0 Baso % (Auto) 0.2 Lymph # (Auto) 1.9 [place] # (Auto) 0.8 H Eos # (Auto) 0.1 Baso # (Auto) 0.01 Absolute Neuts (auto) 3.24 Sodium 142 Potassium 3.7 Chloride 108 H Carbon Dioxide 29 Anion Gap 8 L BUN 6 L Creatinine 0.4 L Est GFR ( Amer) > 60 Est GFR (Non-Af Amer) > 60 POC Glucose (mg/dL) Random Glucose 94 Calcium 8.6 Phosphorus 3.4 Magnesium 1.4 L Total Bilirubin 0.3 AST 36 ALT 44 Alkaline Phosphatase 83 Troponin I Total Protein 5.6 L Albumin 3.1 Globulin 2.6 Albumin/Globulin Ratio 1.2 TSH 3rd Generation Urine Color Urine Appearance Urine pH Ur Specific Jack Urine Protein Urine Glucose (UA) Urine Ketones Urine Blood Urine Nitrate Urine Bilirubin Urine Urobilinogen Ur Leukocyte Esterase Urine Opiates Screen Positive H Urine Methadone Screen Negative Ur Barbiturates Screen Negative Ur Phencyclidine Scrn Negative Ur Amphetamines Screen Negative U Benzodiazepines Scrn Positive H U Oth Cocaine Metabols Negative U Cannabinoids Screen Negative 12/08/18 12/08/18 12/08/18 05:00 07:21 11:10 WBC RBC Hgb Hct MCV MCH MCHC RDW Plt Count MPV Neut % (Auto) Lymph % (Auto) [place] % (Auto) Eos % (Auto) Baso % (Auto) Lymph # (Auto) [place] # (Auto) Eos # (Auto) Baso # (Auto) Absolute Neuts (auto) Sodium Potassium Chloride Carbon Dioxide Anion Gap BUN Creatinine Est GFR ( Amer) Est GFR (Non-Af Amer) POC Glucose (mg/dL) 98 121 H Random Glucose Calcium Phosphorus Magnesium Total Bilirubin AST ALT Alkaline Phosphatase Troponin I Total Protein Albumin Globulin Albumin/Globulin Ratio TSH 3rd Generation < 0.02 L Urine Color Urine Appearance Urine pH Ur Specific Jack Urine Protein Urine Glucose (UA) Urine Ketones Urine Blood Urine Nitrate Urine Bilirubin Urine Urobilinogen Ur Leukocyte Esterase Urine Opiates Screen Urine Methadone Screen Ur Barbiturates Screen Ur Phencyclidine Scrn Ur Amphetamines Screen U Benzodiazepines Scrn U Oth Cocaine Metabols U Cannabinoids Screen 12/08/18 16:06 WBC RBC Hgb Hct MCV MCH MCHC RDW Plt Count MPV Neut % (Auto) Lymph % (Auto) [place] % (Auto) Eos % (Auto) Baso % (Auto) Lymph # (Auto) [place] # (Auto) Eos # (Auto) Baso # (Auto) Absolute Neuts (auto) Sodium Potassium Chloride Carbon Dioxide Anion Gap BUN Creatinine Est GFR ( Amer) Est GFR (Non-Af Amer) POC Glucose (mg/dL) 98 Random Glucose Calcium Phosphorus Magnesium Total Bilirubin AST ALT Alkaline Phosphatase Troponin I Total Protein Albumin Globulin Albumin/Globulin Ratio TSH 3rd Generation Urine Color Urine Appearance Urine pH Ur Specific Jack Urine Protein Urine Glucose (UA) Urine Ketones Urine Blood Urine Nitrate Urine Bilirubin Urine Urobilinogen Ur Leukocyte Esterase Urine Opiates Screen Urine Methadone Screen Ur Barbiturates Screen Ur Phencyclidine Scrn Ur Amphetamines Screen U Benzodiazepines Scrn U Oth Cocaine Metabols U Cannabinoids Screen Attending/Attestation - Attestation I have personally seen and examined this patient.: Yes I have fully participated in the care of the patient.: Yes I have reviewed all pertinent clinical information: Yes Notes (Text): 12/08/18 16:43 Attending note; Patient seen and examined with resident in ER. Patient's and son by the bedside. Patient is complaining of severe diarrhea and abdominal pain. Denies any fevers, chills. Denies any nausea, vomiting. Patient looks anxious. Patient is a 53-year-old female with a PMH COPD, DM2/ diet controlled, Depression/Anxiety/Schizophrenia who presents to the emergency department complaining of abdominal pain, headache, diarrhea , nausea, non bloody/non billious vomiting, and chest pain. 1. Abdominal pain with significant diarrhea CT abdomen and pelvis showed colitis. Started on IVf. Nothing by mouth. Started on IV Cipro and Flagyl. Stool cultures ordered. Patient with a previous history of colitis. GI evaluation requested. 2. anxiety; continue Xanax. 3. Headache; continue Tylenol. 4. Depression and anxiety; monitor closely. Continue Xanax. Multiple medical symptoms due to anxiety. Family explained in detail. 5. Pain management with IV morphine when necessary. Monitor the patient closely. Upon discharge the patient will follow-up with PMD Dr. Gallagher.
--- NOTE | 2018-12-07 09:47 | RAD ---
Date of service: 12/07/2018 HISTORY: dyspnea COMPARISON: 06/05/2018 FINDINGS: LUNGS: No active pulmonary disease. PLEURA: No significant pleural effusion identified, no pneumothorax apparent. CARDIOVASCULAR: No aortic atherosclerotic calcification present. Normal cardiac size. No pulmonary vascular congestion. OSSEOUS STRUCTURES: No significant abnormalities. VISUALIZED UPPER ABDOMEN: Normal. OTHER FINDINGS: None. IMPRESSION: No active disease.
[2018-12-07] MEDS ORDERED: Ciprofloxacin 200mg/100ml D5W 100 ML IVPB SCH (10:00)
[2018-12-07] MEDS: Morphine 2 mg/ml ISec IVP PRN ×2 (10:35→16:29)
[2018-12-07 10:54] LABS: PH,URINE 6.5 (4.7-8.0); URINE BILIRUBIN NEGATIVE (NEGATIVE); URINE BLOOD NEGATIVE (NEGATIVE); URINE GLUCOSE (UA) NEGATIVE (NEGATIVE); URINE LEUKOCYTE ESTERASE NEGATIVE Leu/uL (NEGATIVE); URINE PROTEIN NEGATIVE mg/dL (<30 mg/dL); URINE UROBILINOGEN 0.2 E.U./dL (<1 E.U./dL)
[2018-12-07 10:56] LABS: URINE APPEARANCE CLEAR (CLEAR); URINE COLOR YELLOW (YELLOW)
[2018-12-07] MEDS: metroNIDAZOLE IV 500 mg/100 ml 500 MG/100 ML BAG IVPB SCH ×2 (13:59→21:39)
[2018-12-07] MEDS: Sodium Chloride 0.9% 1,000 ML IV SCH ×2 (14:01→21:42)
--- NOTE | 2018-12-07 15:18 | CT ---
Date of service: 12/07/2018 PROCEDURE: CT Abdomen and Pelvis with contrast HISTORY: abdominal pain COMPARISON: Comparison is made with 08/06/2014 TECHNIQUE: Contrast dose: 100 mL of Omnipaque 350 intravenously. Axial and reformatted coronal and sagittal CT images of the abdomen and pelvis were obtained after IV contrast administration. Radiation dose: Total exam DLP = 206.65 mGy-cm. This CT exam was performed using one or more of the following dose reduction techniques: Automated exposure control, adjustment of the mA and/or kV according to patient size, and/or use of iterative reconstruction technique. FINDINGS: LOWER THORAX: Unremarkable. LIVER: Unremarkable. No gross lesion or ductal dilatation. GALLBLADDER AND BILE DUCTS: Status post cholecystectomy PANCREAS: Unremarkable. No gross lesion or ductal dilatation. SPLEEN: Unremarkable. ADRENALS: Unremarkable. No mass. KIDNEYS AND URETERS: Unremarkable. No hydronephrosis. No solid mass. VASCULATURE: Unremarkable. No aortic aneurysm. No aortic atherosclerotic calcification or mural plaque present. BOWEL: There is gastric and duodenal wall thickening noted. There is also diffuse large bowel wall thickening suspicious for colitis. No evidence of small bowel obstruction. APPENDIX: The appendix is not visualized. There is no evidence of appendicitis. PERITONEUM: Unremarkable. No free fluid. No free air. LYMPH NODES: Unremarkable. No enlarged lymph nodes. BLADDER: The urinary bladder is distended. REPRODUCTIVE: The uterus and adnexa are not visualized. BONES: No acute fracture. OTHER FINDINGS: None. IMPRESSION: Diffuse mild large bowel wall thickening suspicious for colitis. Suspicious for mild gastric and duodenal wall thickening suggestive of gastroenteritis. Otherwise no CT evidence of acute pathology in the abdomen and pelvis.
--- NOTE | 2018-12-07 15:45 | CARD ---
APPROVED REPORT Date of service: 12/07/2018 EKG Measurement Heart [id number] <Conclusion> Normal sinus rhythm Normal ECG
[2018-12-07 16:13] VITALS: RESP 20
[2018-12-07] MEDS: Albuterol-Ipratrop 3 mg / 0.5 (3 ml) UD IH SCH (19:33)
--- NOTE | 2018-12-07 20:09 | CP.PCM.PN ---
<Niall Lutz - Last Filed: 12/07/18 20:05> Subjective - Date & Time of Evaluation Date of Evaluation: 12/07/18 Time of Evaluation: 20:05 - Subjective Subjective: PGY-1 For house doc: S: Got paged for 10/10 abd pain. Pt states that she is feeling some pain but she is able to tolerate her diet with some nausea without emesis. She denies chest pain, SOB, lightheadedness or dizziness. Per nursing pt had 1 bout of non-bloody diarrhea before shift change at 6pm. O: VSS, HEENT: EOMI, Non-ectecric Cardio: RRR, S1, S2 Pulm: CTA b/l GI: Soft, non-tender upon distraction, non-distended, no guarding, non-rigid, no rebound A: Abd pain - moderate - Will give morphine 1mg IV once - Will get heme occult stool - r/o GI bleed - Trend CBC - to ensure no active bleed. Objective - Vital Signs/Intake and Output Vital Signs (last 24 hours): Temp Pulse Resp BP Pulse Ox 98.4 F 86 20 103/75 99 12/07/18 16:11 12/07/18 19:38 12/07/18 16:11 12/07/18 16:11 12/07/18 16:11 Intake and Output: 12/07/18 12/08/18 18:59 06:59 Intake Total 2740 Output Total 400 Balance 2340 - Medications Medications: Current Medications Albuterol/Ipratropium (Duoneb 3 Mg/0.5 Mg (3 Ml) Ud) 3 ml IH [id number] [facility] Last Admin: 12/07/18 19:33 Dose: 3 ml Albuterol/Ipratropium (Duoneb 3 Mg/0.5 Mg (3 Ml) Ud) 3 ml IH Q2H PRN PRN Reason: Shortness of Breath Alprazolam (Xanax) 1 mg PO TID PRN; Protocol PRN Reason: Anxiety Metronidazole (Flagyl) 500 mg in 100 mls @ 100 mls/hr IVPB Q8 [facility]; Protocol Last Admin: 12/07/18 13:59 Dose: 100 mls/hr Sodium Chloride (Sodium Chloride 0.9%) 1,000 mls @ 200 mls/hr IV .Q5H [facility] Last Admin: 12/07/18 14:01 Dose: 200 mls/hr Morphine Sulfate (Morphine) 1 mg IVP Q6H PRN PRN Reason: Severe Pain 8-10 Last Admin: 12/07/18 16:29 Dose: 1 mg Ondansetron HCl (Zofran Inj) 4 mg IVP Q6H PRN PRN Reason: Nausea/Vomiting Pantoprazole Sodium (Protonix Inj) 40 mg IVP DAILY [facility] Last Admin: 12/07/18 09:32 Dose: 40 mg - Labs Labs: 12/07/18 03:15 12/07/18 03:15 <Eb Rivas - Last Filed: 12/08/18 00:22> Objective - Vital Signs/Intake and Output Vital Signs (last 24 hours): Temp Pulse Resp BP Pulse Ox 98.5 F 95 H 20 99/66 L 97 12/08/18 00:00 12/08/18 00:00 12/08/18 00:00 12/08/18 00:00 12/08/18 00:00 Intake and Output: 12/07/18 12/08/18 18:59 06:59 Intake Total 2740 Output Total 400 Balance 2340 - Medications Medications: Current Medications Albuterol/Ipratropium (Duoneb 3 Mg/0.5 Mg (3 Ml) Ud) 3 ml IH [id number] [facility] Last Admin: 12/07/18 19:33 Dose: 3 ml Albuterol/Ipratropium (Duoneb 3 Mg/0.5 Mg (3 Ml) Ud) 3 ml IH Q2H PRN PRN Reason: Shortness of Breath Alprazolam (Xanax) 1 mg PO TID PRN; Protocol PRN Reason: Anxiety Metronidazole (Flagyl) 500 mg in 100 mls @ 100 mls/hr IVPB Q8 [facility]; Protocol Last Admin: 12/07/18 21:39 Dose: 100 mls/hr Sodium Chloride (Sodium Chloride 0.9%) 1,000 mls @ 200 mls/hr IV .Q5H [facility] Last Admin: 12/07/18 21:42 Dose: 200 mls/hr Morphine Sulfate (Morphine) 1 mg IVP Q6H PRN PRN Reason: Severe Pain 8-10 Last Admin: 12/07/18 16:29 Dose: 1 mg Ondansetron HCl (Zofran Inj) 4 mg IVP Q6H PRN PRN Reason: Nausea/Vomiting Pantoprazole Sodium (Protonix Inj) 40 mg IVP DAILY [facility] Last Admin: 12/07/18 09:32 Dose: 40 mg - Labs Labs: 12/07/18 03:15 12/07/18 03:15 Attending/Attestation - Attestation I have personally seen and examined this patient.: No I have fully participated in the care of the patient.: No I have reviewed all pertinent clinical information, including history, physical exam and plan: No
[2018-12-07] MEDS ORDERED: Morphine 2 mg/ml ISec IVP ONE (20:23)
[2018-12-07 22:18] LABS: URINE BILIRUBIN NEGATIVE (NEGATIVE); URINE BLOOD NEGATIVE (NEGATIVE); URINE GLUCOSE (UA) NEGATIVE (NEGATIVE); URINE LEUKOCYTE ESTERASE NEGATIVE Leu/uL (NEGATIVE); URINE PROTEIN NEGATIVE mg/dL (<30 mg/dL)
[2018-12-07 22:22] LABS: URINE APPEARANCE CLEAR (CLEAR); URINE COLOR YELLOW (YELLOW)
[2018-12-07 22:39] LABS: BARBITURATES, UR NEGATIVE (NEGATIVE); BENZODIAZEPINES, UR POSITIVE (NEGATIVE); OPIATES, UR POSITIVE (NEGATIVE); PHENCYCLIDINE, UR NEGATIVE (NEGATIVE)
--- NOTE | 2018-12-07 23:22 | CON ---
DATE: 12/07/2018 I examined Ms. Wiseman this morning. HISTORY OF PRESENT ILLNESS: She is a 53-year-old female with past medical history of syncope, polysubstance abuse, recurrent back pain, renal colic, admitted to the hospital with complaints of abdominal pain and diarrhea for the past week or so. OTHER MEDICAL HISTORY: Includes COPD, depression, anxiety, schizophrenia, cholecystectomy, appendectomy, hysterectomy, and orthopedic surgery. SOCIAL HISTORY: The patient is a heavy smoker, but denies drug use at the current time point. MEDICATIONS: Include metformin as well as Xanax on the outpatient side. According to her, she has a long-standing history of "colitis." The patient had not previously been diagnosed with crohns or ulcerative colitis. She has had multiple diverticulitis episodes, and was treated by Dr. Maribel Arnold in the past. She had acute onset of diarrhea and vomiting started about 1 week ago including abdominal pain, which is diffuse. She denies perfuse rectal bleeding, notes frequent liquidy diarrhea. Unclear about how much weight loss she has entertained. She indicates she has been taking multiple medications [id number] for her "colitis-type symptoms." Bowel movements are never solid, more on the mushy side, and this alternates with diarrhea. She has been told in the past that her GI condition is related to "irritable bowel." PHYSICAL EXAMINATION: VITAL SIGNS: I reviewed this patient's vital signs. HEENT: Noncontributory. LUNGS: Clear to auscultation. HEART: Regular rhythm. ABDOMEN: Not distended. The patient is tender in the epigastric area, left upper quadrant. Also noted is tenderness in the periumbilical area, right lower quadrant, and left lower quadrant. LABORATORY DATA: Review of laboratory data indicate white count on admission 4000 with an H and H stable, platelet count of 155. Electrolytes within normal limits, so is renal function. Her LFT's are also within normal limits. Toxicology, positive for barbiturates and benzodiazepines. CT is not officially interpreted as of yet; however, review of images indicate some thickness over the stomach. Small bowel, which has a thick wall, does have some air-fluid levels. There is an irregularity in the wall of the colon, also fluid noted in the area of transverse and ascending colon. I reviewed the note of Dr. Barr as well as the ER physician for this patient. ASSESSMENT AND PLAN: This is a 53-year-old white female with history of "chronic pain syndrome," irritable bowel, and "colitis" significant with acute exacerbation of abdominal pain, nausea, vomiting, diarrhea for the past week or so. The patient denied any intake of tainted food. Differential diagnosis in this case includes possibly a viral gastroenteritis, possibly tainted food intake, or possibly inflammatory bowel disease. She has not been treated per se, with therapy for inflammatory bowel disease including mesalamine, TNF inhibitors, or steroids. There is a fecal leukocyte test pending. At the current time point, the patient was given Bentyl, which has been discontinued. Also, the patient is on metronidazole on an every 8-hour basis. She has been ordered ondansetron as well as a daily proton pump inhibitor and IV fluids. I think this is reasonable at the current time point. I will attempt to avoid any motility agents including Bentyl as well as Imodium at the current time point and as indicated previously, the results of fecal leukocytes is pending. At the bedside, the patient indicates pain is somewhat improved; nausea is somewhat improved as well on the current medication regimen. I advised her if there is less of a nausea issue to try very small volumes of clear liquid and advance as tolerated. The patient will be reevaluated tomorrow morning for any progress. Art Dunn DO, PhD RUDY
[2018-12-08] MEDS: Albuterol-Ipratrop 3 mg / 0.5 (3 ml) UD IH SCH ×4 (02:29→16:29)
[2018-12-08] MEDS: metroNIDAZOLE IV 500 mg/100 ml 500 MG/100 ML BAG IVPB SCH ×2 (05:17→14:06)
[2018-12-08] MEDS ORDERED: Pantoprazole 40 mg EC Tab PO SCH (06:00)
[2018-12-08] MEDS: Morphine 2 mg/ml ISec IVP PRN ×2 (06:31→14:06)
[2018-12-08 06:44] LABS: BASO # 0.01 K/mm3 (0.0-2.0); BASO % 0.2 % (0.0-3.0); EOS # 0.1 (0.0-0.7); LYMPH # 1.9 (1.2-3.4); LYMPH % 31.3 % (22.0-35.0); MEAN CELL VOLUME 89.5 fl (80.0-105.0); MEAN CORPUSCULAR HEMOGLOBIN 30.5 pg (25.0-35.0); MEAN CORPUSCULAR HGB CONC 34.1 g/dl (31.0-37.0); MEAN PLATELET VOLUME 11.1 fl (7.0-11.0); MONO # 0.8 (0.1-0.6); MONO % 12.8 % (1.0-6.0); RBC 3.61 10^6/uL (3.5-6.1); RED CELL DISTRIBUTION WIDTH 11.8 % (11.5-14.5)
[2018-12-08 06:50] LABS: ALB/GLOB RATIO 1.2 (1.1-1.8); ALBUMIN 3.1 g/dL (3.0-4.8); ALT/SGPT 44 U/L (7-56); AST/SGOT 36 U/L (14-36); BLOOD UREA NITROGEN 6 mg/dL (7-21); CALCIUM 8.6 mg/dL (8.4-10.5); GFR NON-AFRICAN AMERICAN > 60
[2018-12-08] MEDS ORDERED: Magnesium Sulfate 2 gm/50 ml 2 GM/50 ML BAG IVPB ONE (08:59)
[2018-12-08] MEDS ORDERED: Apap-Butalbital-Caffeine 325-50-40mg Tab PO PRN (09:13)
[2018-12-08] MEDS ORDERED: Benzocaine/Menthol (Cepacol) Lozenge MT PRN (09:14)
--- NOTE | 2018-12-08 13:52 | CP.PCM.PN ---
<Adin Villatoro - Last Filed: 12/08/18 14:30> Subjective - Date & Time of Evaluation Date of Evaluation: 12/08/18 Time of Evaluation: 13:48 - Subjective Subjective: Adin Villatoro D.O. PGY-3, Internal Medicine Resident, Hospitalist Progress Note 53 year old female with a PMH of depression, anxiety, ?schizophrenia, COPD, and "colitis" who presented to [facility] ER with abdominal pain, headache, and diarrhea with NBNB emesis. Patient was seen and examined at bedside. States still having many [place] 6-7 bowel movements overnight. States having a headache and a bit of a sore throat. Asking for more pain medications. Objective - Vital Signs/Intake and Output Vital Signs (last 24 hours): Temp Pulse Resp BP Pulse Ox 98.5 F 93 H 20 99/66 L 97 12/08/18 00:00 12/08/18 06:00 12/08/18 00:00 12/08/18 00:00 12/08/18 00:00 Intake and Output: 12/08/18 12/08/18 06:59 18:59 Intake Total 1400 120 Balance 1400 120 - Medications Medications: Current Medications Acetaminophen/Butalbital/Caffeine (Fioricet) 1 tab PO Q8H PRN PRN Reason: Migraine headache Last Admin: 12/08/18 09:46 Dose: 1 tab Albuterol/Ipratropium (Duoneb 3 Mg/0.5 Mg (3 Ml) Ud) 3 ml IH [id number] [facility] Last Admin: 12/08/18 11:24 Dose: Not Given Albuterol/Ipratropium (Duoneb 3 Mg/0.5 Mg (3 Ml) Ud) 3 ml IH Q2H PRN PRN Reason: Shortness of Breath Alprazolam (Xanax) 1 mg PO TID PRN; Protocol PRN Reason: Anxiety Benzocaine/Menthol (Cepacol Sore Throat) 1 inocente MT Q2H PRN PRN Reason: Sore Throat Last Admin: 12/08/18 09:59 Dose: 1 inocente Metronidazole (Flagyl) 500 mg in 100 mls @ 100 mls/hr IVPB Q8 [facility]; Protocol Last Admin: 12/08/18 05:17 Dose: 100 mls/hr Sodium Chloride (Sodium Chloride 0.9%) 1,000 mls @ 200 mls/hr IV .Q5H [facility] Last Admin: 12/07/18 21:42 Dose: 200 mls/hr Morphine Sulfate (Morphine) 1 mg IVP Q6H PRN PRN Reason: Severe Pain 8-10 Last Admin: 12/08/18 06:31 Dose: 1 mg Ondansetron HCl (Zofran Inj) 4 mg IVP Q6H PRN PRN Reason: Nausea/Vomiting Pantoprazole Sodium (Protonix Inj) 40 mg IVP DAILY [facility] Last Admin: 12/08/18 09:59 Dose: 40 mg - Labs Labs: 12/08/18 05:00 12/08/18 05:00 - Constitutional Appears: Disheveled, No Acute Distress - Head Exam Head Exam: ATRAUMATIC, NORMOCEPHALIC - Eye Exam Eye Exam: EOMI, PERRL - ENT Exam ENT Exam: Mucous Membranes Moist, no pharyngeal erythema or lesions noted - Neck Exam Neck exam: Positive for: Full Rom - Respiratory Exam Respiratory Exam: Clear to Auscultation Bilateral, NORMAL BREATHING PATTERN. absent: Accessory Muscle Use, Respiratory Distress - Cardiovascular Exam Cardiovascular Exam: REGULAR RHYTHM, RRR, +S1, +S2. absent: Diastolic murmur, Systolic Murmur - GI/Abdominal Exam GI & Abdominal Exam: Normal Bowel Sounds, Soft, Tenderness Additional comments: mild tenderness to palpation - Extremities Exam Extremities exam: Positive for: full ROM, normal inspection, pedal pulses present. Negative for: calf tenderness, pedal edema - Neurological Exam Neurological exam: Alert, Normal Gait, Oriented x4 - Skin Skin Exam: Dry, Normal Color, Warm Assessment and Plan - Assessment and Plan (Free Text) Assessment: 53 year old female with a PMH of depression, anxiety, ?schizophrenia, COPD, and "colitis" who presented to [facility] with abdominal pain, headache, and diarrhea with NBNB emesis. Plan: 1. Nausea, vomiting, and diarrhea Likely acute viral gastroenteritis vs colitis No leukocytosis, afebrile 12/07 CT A/P: Diffuse mild large bowel wall thickening suspicious for colitis. Suspicious for mild gastric and duodenal wall thickening suggestive of gastroenteritis. Pending stool culture, fecal leukocytes, C. Diff Cont metronidazole D2 Cont PRN morphine for pain control Cont PRN zofran GI following 2. COPD Cont duonebs 3. Elevated TSH Noted in previous admission as well Will get T4 and T3 to evaluate 4. Hx DM Has lots significant amount of weight per family Last HgbA1c 4.8 D/C'ed accuchecks 5. Tobacco Abuse Counseling provided, patient unwilling to quit at this time 6. Anxiety/depression Cont home xanax 1mg q8 Ppx: protonix/SCDs Patient was seen and examined and case was discussed at length during rounds with attending physician Dr. Kristina Harris <Abram Acevedo - Last Filed: 12/08/18 16:56> Objective - Vital Signs/Intake and Output Vital Signs (last 24 hours): Temp Pulse Resp BP Pulse Ox 98.5 F 93 H 20 99/66 L 97 12/08/18 00:00 12/08/18 06:00 12/08/18 00:00 12/08/18 00:00 12/08/18 00:00 Intake and Output: 12/08/18 12/08/18 06:59 18:59 Intake Total 1400 120 Balance 1400 120 - Medications Medications: Current Medications Acetaminophen/Butalbital/Caffeine (Fioricet) 1 tab PO Q8H PRN PRN Reason: Migraine headache Last Admin: 12/08/18 09:46 Dose: 1 tab Albuterol/Ipratropium (Duoneb 3 Mg/0.5 Mg (3 Ml) Ud) 3 ml IH [id number] [facility] Last Admin: 12/08/18 16:29 Dose: Not Given Albuterol/Ipratropium (Duoneb 3 Mg/0.5 Mg (3 Ml) Ud) 3 ml IH Q2H PRN PRN Reason: Shortness of Breath Alprazolam (Xanax) 1 mg PO TID PRN; Protocol PRN Reason: Anxiety Benzocaine/Menthol (Cepacol Sore Throat) 1 inocente MT Q2H PRN PRN Reason: Sore Throat Last Admin: 12/08/18 09:59 Dose: 1 inocente Metronidazole (Flagyl) 500 mg in 100 mls @ 100 mls/hr IVPB Q8 [facility]; Protocol Last Admin: 12/08/18 14:06 Dose: 100 mls/hr Sodium Chloride (Sodium Chloride 0.9%) 1,000 mls @ 200 mls/hr IV .Q5H [facility] Last Admin: 12/07/18 21:42 Dose: 200 mls/hr Ceftriaxone Sodium (Rocephin 1 Gram Ivpb) 1 gm in 100 mls @ 100 mls/hr IVPB DAILY [facility]; Protocol Morphine Sulfate (Morphine) 1 mg IVP Q6H PRN PRN Reason: Severe Pain 8-10 Last Admin: 12/08/18 14:06 Dose: 1 mg Ondansetron HCl (Zofran Inj) 4 mg IVP Q6H PRN PRN Reason: Nausea/Vomiting Pantoprazole Sodium (Protonix Inj) 40 mg IVP DAILY [facility] Last Admin: 12/08/18 09:59 Dose: 40 mg - Labs Labs: 12/08/18 05:00 12/08/18 05:00 Attending/Attestation - Attestation I have personally seen and examined this patient.: Yes I have fully participated in the care of the patient.: Yes I have reviewed all pertinent clinical information, including history, physical exam and plan: Yes Notes (Text): 12/08/18 16:54 Attending note; Patient seen and examined with resident. Patient's and son by the bedside. Patient is still complaining of diarrhea and abdominal pain. Denies any fevers, chills. Denies any nausea, vomiting. Patient looks anxious. Patient is a 53-year-old female with a PMH COPD, DM2/ diet controlled, Depression/Anxiety/Schizophrenia who presents to the emergency department complaining of abdominal pain, headache, diarrhea , nausea, non bloody/non billious vomiting, and chest pain. 1. Abdominal pain with significant diarrhea CT abdomen and pelvis showed colitis. Dehydration and mild hypotension. Continue IV fluids. Started on clear liquid diet. Monitor abdominal pain. continue IV rocephin and Flagyl. Stool cultures pending Patient with a previous history of colitis. GI evaluation appreciated. Possible flex sigmoidoscopy or colonoscopy on Monday/ . anxiety; continue Xanax. 3. Headache; continue Tylenol on Fioricet as needed. 4. Depression and anxiety; monitor closely. Continue Xanax. Multiple medical symptoms due to anxiety. Family explained in detail. 5. Pain management with IV morphine when necessary. Monitor the patient closely. Upon discharge the patient will follow-up with PMD Dr. Gallagher.
[2018-12-08] MEDS ORDERED: cefTRIAXone 1 gm 1 GM/100 ML BAG IVPB SCH (17:00)
[2018-12-08 17:14] VITALS: BP 115/84; PULSE 85; TEMP 98.3; O2SAT 98
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
--- NOTE | 2018-12-08 22:28 | CARD ---
APPROVED REPORT Date of service: 12/08/2018 EKG Measurement Heart [id number] <Conclusion> Normal sinus rhythm Normal ECG
--- NOTE | 2018-12-10 08:08 | PN ---
DATE: 12/08/2018 SUBJECTIVE: I examined Ms. Wiseman this morning. She is a 53-year-old white female with complaint of abdominal pain, diarrhea, nausea, vomiting, going on over the past week and half. The patient denied any rectal bleeding. At bedside this morning, the patient feels somewhat improved although she still has abdominal pain, significantly less roughly 50% yesterday. The patient also noted that the frequency in has also decreased relative to time of admission. The patient was stable having small volumes of clear liquid, got nausea and vomiting. She was unable to do this the outside. PHYSICAL EXAMINATION: VITAL SIGNS: I reviewed this patient's vital signs. HEENT: Noncontributory except for dry mouth. LUNGS: Decreased breath sounds, basilar. HEART: Irregular rhythm. ABDOMEN: Soft, not distended, tender in the epigastric area, right lower quadrant, left lower quadrant and periumbilical. The tenderness is less today than on exam yesterday. LABORATORY DATA: New labs pending from this morning. ASSESSMENT AND PLAN: This is a 53-year-old white female with complaints of nausea, vomiting, abdominal pain, diarrhea probably secondary to some degree of gastroenteritis. The patient has improved relative to from the date of admission. Continue on the same medication regimen. Antibiotic-alonzo, she is only on metronidazole. The patient has been doing well on ondansetron as well as pantoprazole intravenous. The patient has stool studies for fecal leucocytes, which is still pending. At the current time point, we will maintain her on current diet due to severe symptoms. Art Dunn DO
== END 2018-12-08 18:47 | disposition left against medical advice (07) ==
LOC: ED 01:51 → ERH 07:14 → 5RSO 08:49 → 3RNO 09:42
PROVIDERS: ADMIT Internal Medicine; ATTEND Internal Medicine
DX: K52.9 Noninfective gastroenteritis and colitis, unspecified (principal); E86.0 Dehydration; E11.9 Type 2 diabetes mellitus without complications; J44.9 Chronic obstructive pulmonary disease, unspecified; I95.9 Hypotension, unspecified; R07.9 Chest pain, unspecified; F17.200 Nicotine dependence, unspecified, uncomplicated; F32.9 Major depressive disorder, single episode, unspecified; F20.9 Schizophrenia, unspecified; F41.9 Anxiety disorder, unspecified
CPT/HCPCS: 36415; 71045; 74177; 80053; 80324; 80345; 80346; 80349; 80353; 80358; 80361; 81003; 82948; 83690; 83735; 83992; 84100; 84443; 84484; 85025; 93005; 94640; 96361; 96365; 96366; 96375; 96376; 99285; C9113; G0378; J0744; J2270; J2405; J7030; Q9967